=== PATIENT | male | born 1960 | race Caucasian/White ===

== ENCOUNTER 2016-06-14 12:12 | Inpatient (IN) | payer MEDICARE, MEDICAID ==
[~2016-06-14] VITALS: Ht 165.1 cm; Wt 65.3 kg
[~2016-06-14 12:12] MED LIST: ASPI-1035 PO; CINA30 PO; CLOP75TA2 PO
[2016-06-14 14:06] LABS: *AMPHETAMINES SCREEN URINE NEGATIVE (NEGATIVE); *BARBITURATES SCREEN URINE NEGATIVE (NEGATIVE); *BENZODIAZEPINES SCREEN URINE NEGATIVE (NEGATIVE); *COCAINE SCREEN URINE NEGATIVE (NEGATIVE); CANNABINOID URINE SCREEN NEGATIVE (NEGATIVE); ECSTASY MDMA SCREEN URINE NEGATIVE (NEGATIVE); METHADONE URINE SCREEN NEGATIVE (NEGATIVE); OPIATES URINE SCREEN NEGATIVE (NEGATIVE); PHENCYCLIDINE URINE SCREEN NEGATIVE (NEGATIVE)
[2016-06-14 14:26] LABS: INR 1.3; PROTHROMBIN TIME 13.4 sec
[2016-06-14 14:30] LABS: CALCIUM 7.9 mg/dL (8.5-10.1)
[2016-06-14 14:32] LABS: HEMATOCRIT. 32.6 % (42.0-52.0); HEMOGLOBIN. 10.8 g/dL (14.0-18.0); MEAN CORPUSCULAR HEMOGLOBIN 29.6 pg (28.0-32.0); MEAN CORPUSCULAR HGB CONC 33.2 g/dL (31.0-37.0); MEAN CORPUSCULAR VOLUME 89.2 fL (80.0-94.0); MEAN PLATELET VOLUME 8.5 fl (7.4-10.4); PLATELET 90 x1000/uL (130-400); RED BLOOD CELL COUNT 3.65 mill/uL (4.7-6.1); RED CELL DISTRIBUTION WIDTH 16.4 % (11.6-14.6)
[2016-06-14 14:37] LABS: TROPONIN I 0.76 ng/mL (0.00-0.04)
[2016-06-14 14:39] LABS: DIFFERENTIAL COMMENT 1
[2016-06-14] MEDS ORDERED: ASPIRIN 81MG TABLET PO ONE (15:00)
[2016-06-14] MEDS: NITROGLYCERIN 0.4MG TABLET SL SL PRN ×2 (15:10→15:19)
[2016-06-14] MEDS ORDERED: NITROGLYCERIN 0.4MG TABLET SL SL ONE (15:14)
[2016-06-14] MEDS ORDERED: ENOXAPARIN 40MG/0.4ML SYR SUBCUT SCH (15:45)
[2016-06-14] MEDS ORDERED: DOCUSATE SODIUM 100MG CAPSULE PO PRN (15:45)
[2016-06-14] MEDS ORDERED: ACETAMINOPHEN 325MG TABLET PO PRN (15:45)
[2016-06-14] MEDS ORDERED: ONDANSETRON HCL 4MG/2ML VIAL IV PRN (15:45)
[2016-06-14 16:26] LABS: CALCIUM 7.3 mg/dL (8.5-10.1)
[2016-06-14 16:34] LABS: ANISOCYTOSIS 1+; PLATELET ESTIMATE DECREASED
[2016-06-14 16:35] LABS: GIANT PLATELETS FEW
[2016-06-14 16:39] LABS: THYROID STIMULATING HORMONE 1.6 uIU/mL (0.36-3.74)
[2016-06-14] MEDS: CLONIDINE 0.1MG TABLET PO PRN (16:57)
[2016-06-14] MEDS: METOPROLOL TARTRATE 25MG TABLET PO SCH (17:00)
[2016-06-14] MEDS: LOSARTAN POTASSIUM 25 MG TABLET PO SCH (17:00)
[2016-06-14] MEDS ORDERED: CARV12.545 PO (19:54)
[2016-06-14 20:03] VITALS: BP 166/94
[2016-06-14] MEDS: ATORVASTATIN CALCIUM 20MG TABLET PO SCH (20:06)
[2016-06-14] MEDS: AMLODIPINE 5MG TABLET PO SCH (20:06)
[2016-06-14 20:49] VITALS: BP 166/94
[2016-06-15 00:11] VITALS: BP 190/92
[2016-06-15] MEDS: CLONIDINE 0.1MG TABLET PO PRN ×2 (01:21→11:50)
[2016-06-15] MEDS ORDERED: ZOLPIDEM TARTRATE 5MG TABLET PO PRN (03:15)
[2016-06-15] MEDS: GUAIFENESIN-DM 200MG-20MG/10ML UDC PO PRN (03:29)
[2016-06-15 04:00] VITALS: BP 159/84
[2016-06-15 06:54] LABS: HEMATOCRIT. 32.3 % (42.0-52.0); HEMOGLOBIN. 10.7 g/dL (14.0-18.0); MEAN CORPUSCULAR HEMOGLOBIN 29.5 pg (28.0-32.0); MEAN CORPUSCULAR HGB CONC 33.2 g/dL (31.0-37.0); MEAN PLATELET VOLUME 8.6 fl (7.4-10.4); PLATELET 88 x1000/uL (130-400); RED BLOOD CELL COUNT 3.63 mill/uL (4.7-6.1); RED CELL DISTRIBUTION WIDTH 16.6 % (11.6-14.6); WHITE BLOOD COUNT 9.4 x1000/uL (4.5-11.0)
[2016-06-15 07:09] LABS: DIFFERENTIAL COMMENT 1
[2016-06-15 07:27] LABS: CALCIUM 7.6 mg/dL (8.5-10.1)
[2016-06-15 08:00] VITALS: BP 166/91
[2016-06-15 08:13] LABS: TROPONIN I 0.46 ng/mL (0.00-0.04)
[2016-06-15] MEDS: CLOPIDOGREL 75MG TABLET PO SCH (09:00)
[2016-06-15] MEDS: ASPIRIN 81MG EC TABLET PO SCH (09:00)
[2016-06-15] MEDS: AMLODIPINE 5MG TABLET PO SCH (09:01)
[2016-06-15 12:00] VITALS: BP 181/106
[2016-06-15] MEDS: NIFEDIPINE XL 60MG TAB PO SCH ×2 (13:08→21:00)
[2016-06-15] MEDS: HYDRALAZINE HCL 50MG TABLET PO SCH ×2 (14:00→22:00)
[2016-06-15] MEDS ORDERED: NITROGLYCERIN 0.1MG/HR PATCH TOP NR (14:30)
[2016-06-15] MEDS: PREDNISONE 20MG TABLET PO SCH (14:40)
[2016-06-15] MEDS: LOSARTAN POTASSIUM 25 MG TABLET PO SCH ×2 (14:42→17:00)
[2016-06-15] MEDS: METOPROLOL TARTRATE 25MG TABLET PO SCH ×2 (14:43→17:00)
[2016-06-15 16:00] VITALS: BP 121/74
[2016-06-15 17:00] LABS: BG CARBOXYHEMOGLOBIN 0.8 % (0.5-1.5); BG DEOXYHEMOGLOBIN 23.1 % (0.0-5.0); BG FRACTION INSPIRED OXYGEN 21; BG METHEMOGLOBIN 0.2 % (0.0-1.5); BG OXYGEN SATURATION 76.7 % (92.0-98.5); BG OXYHEMOGLOBIN 75.9 % (94.0-97.0); BG PCO2 27.8 mmHg (35.0-45.0); BG SAMPLE SITE RIGHT BRACHIAL; BG TOTAL HEMOGLOBIN 11.7 g/dL (12.0-18.0); BG VENT MODE ROOM AIR
[2016-06-15 20:00] VITALS: BP 108/63
[2016-06-15] MEDS: ATORVASTATIN CALCIUM 20MG TABLET PO SCH (21:20)
[2016-06-16] VITALS (7 sets, daily range): BP systolic 55–117; BP diastolic 58–77
[2016-06-16] MEDS: HYDRALAZINE HCL 50MG TABLET PO SCH (06:00)
[2016-06-16] MEDS: LOSARTAN POTASSIUM 25 MG TABLET PO SCH ×2 (08:39→21:02)
[2016-06-16] MEDS: PREDNISONE 20MG TABLET PO SCH (08:39)
[2016-06-16] MEDS: METOPROLOL TARTRATE 25MG TABLET PO SCH ×2 (08:41→17:00)
[2016-06-16] MEDS: NIFEDIPINE XL 60MG TAB PO SCH (08:45)
[2016-06-16] MEDS: ASPIRIN 81MG EC TABLET PO SCH (08:47)
[2016-06-16] MEDS: CLOPIDOGREL 75MG TABLET PO SCH (08:47)
[2016-06-16] MEDS: GUAIFENESIN-DM 200MG-20MG/10ML UDC PO PRN (11:30)
[2016-06-16 12:24] LABS: HEMATOCRIT. 34.8 % (42.0-52.0); HEMOGLOBIN. 11.6 g/dL (14.0-18.0); MEAN CORPUSCULAR HEMOGLOBIN 29.4 pg (28.0-32.0); MEAN CORPUSCULAR HGB CONC 33.4 g/dL (31.0-37.0); MEAN PLATELET VOLUME 8.7 fl (7.4-10.4); PLATELET 123 x1000/uL (130-400); RED BLOOD CELL COUNT 3.96 mill/uL (4.7-6.1); RED CELL DISTRIBUTION WIDTH 15.7 % (11.6-14.6); WHITE BLOOD COUNT 7.4 x1000/uL (4.5-11.0)
[2016-06-16 12:27] LABS: DIFFERENTIAL COMMENT 1
[2016-06-16 12:34] LABS: CALCIUM 7.1 mg/dL (8.5-10.1)
[2016-06-16] MEDS ORDERED: SODIUM CHLORIDE 0.9% 200 ML IV ONE (13:15)
[2016-06-16 13:28] LABS: PLATELET ESTIMATE DECREASED
[2016-06-16 14:25] LABS: PLATELET ESTIMATE SLIGHTLY DECREASED
[2016-06-16 16:08] LABS: BG BASE EXCESS -4.9 mmol/L (-2.0-2.0); BG CARBOXYHEMOGLOBIN 0.4 % (0.5-1.5); BG DEOXYHEMOGLOBIN 4.6 % (0.0-5.0); BG FRACTION INSPIRED OXYGEN 21; BG HCO3 ACT 18.8 mmol/L (22.0-26.0); BG METHEMOGLOBIN 0.6 % (0.0-1.5); BG OXYGEN SATURATION 95.4 % (92.0-98.5); BG OXYHEMOGLOBIN 94.4 % (94.0-97.0); BG PCO2 32.5 mmHg (35.0-45.0); BG PH 7.381 (7.350-7.450); BG PO2 87.3 mmHg (75.0-100.0); BG SAMPLE SITE RIGHT RADIAL; BG TOTAL HEMOGLOBIN 18.6 g/dL (12.0-18.0); BG VENT MODE ROOM AIR
[2016-06-16] MEDS ORDERED: DEXTROSE 50% WATER 50ML SYRINGE IV PRN (16:30)
[2016-06-16] MEDS: BLOOD SUGAR DIAGNOSTIC STRIP TEST SCH ×2 (17:24→21:02)
[2016-06-16] MEDS: INSULIN LISPRO 100 UNITS/ML SUBCUT SCH ×2 (18:23→21:03)
[2016-06-16] MEDS: NIFEDIPINE XL 30MG TAB PO SCH (21:00)
[2016-06-16] MEDS: ATORVASTATIN CALCIUM 20MG TABLET PO SCH (21:02)
[2016-06-17 00:09] VITALS: BP 98/55
[2016-06-17] MEDS: IPRATROPIUM/ALBUTEROL 0.5-3(2.5)MG/3ML NEB INH SCH ×4 (00:19→19:50)
[2016-06-17] MEDS: BUDESONIDE 0.5MG/2ML NEB HHN SCH ×3 (00:20→19:50)
[2016-06-17 04:30] VITALS: BP 128/71
[2016-06-17] MEDS: GUAIFENESIN-DM 200MG-20MG/10ML UDC PO PRN ×2 (05:35→21:04)
[2016-06-17 07:00] LABS: HEMATOCRIT. 36.2 % (42.0-52.0); HEMOGLOBIN. 11.8 g/dL (14.0-18.0); MEAN CORPUSCULAR HEMOGLOBIN 28.7 pg (28.0-32.0); MEAN CORPUSCULAR HGB CONC 32.7 g/dL (31.0-37.0); MEAN CORPUSCULAR VOLUME 87.7 fL (80.0-94.0); MEAN PLATELET VOLUME 8.8 fl (7.4-10.4); PLATELET 144 x1000/uL (130-400); RED BLOOD CELL COUNT 4.12 mill/uL (4.7-6.1); RED CELL DISTRIBUTION WIDTH 15.9 % (11.6-14.6); WHITE BLOOD COUNT 12.6 x1000/uL (4.5-11.0)
[2016-06-17 07:33] LABS: CALCIUM 6.9 mg/dL (8.5-10.1)
[2016-06-17 08:00] VITALS: BP 125/71
[2016-06-17] MEDS: BLOOD SUGAR DIAGNOSTIC STRIP TEST SCH ×4 (08:11→21:05)
[2016-06-17 08:23] LABS: DIFFERENTIAL COMMENT 1
[2016-06-17] MEDS: ASPIRIN 81MG EC TABLET PO SCH (08:42)
[2016-06-17] MEDS: PREDNISONE 20MG TABLET PO SCH (08:42)
[2016-06-17] MEDS: INSULIN LISPRO 100 UNITS/ML SUBCUT SCH ×4 (08:42→21:18)
[2016-06-17] MEDS: METOPROLOL TARTRATE 25MG TABLET PO SCH ×2 (09:00→17:00)
[2016-06-17] MEDS: LOSARTAN POTASSIUM 25 MG TABLET PO SCH ×2 (09:00→21:00)
[2016-06-17] MEDS: NIFEDIPINE XL 30MG TAB PO SCH ×2 (09:00→21:00)
[2016-06-17] MEDS ORDERED: ASPIRIN 81MG EC TABLET PO SCH (09:00)
[2016-06-17] MEDS: CLOPIDOGREL 75MG TABLET PO SCH (09:55)
[2016-06-17 12:00] VITALS: BP 115/64
[2016-06-17 14:02] LABS: ANISOCYTOSIS 1+; PLATELET ESTIMATE NORMAL
[2016-06-17 16:00] VITALS: BP 126/71
[2016-06-17] MEDS ORDERED: INSULIN LISPRO 100 UNITS/ML SUBCUT ONE (18:30)
[2016-06-17 20:00] VITALS: BP 150/86
[2016-06-17] MEDS: LORAZEPAM 2MG/ML CPJ IV PRN (21:04)
[2016-06-17] MEDS: ATORVASTATIN CALCIUM 20MG TABLET PO SCH (21:04)
[2016-06-17] MEDS ORDERED: INSULIN DETEMIR UD 100 UNITS/ML SYR SUBCUT SCH (22:00)
[2016-06-18 00:24] VITALS: BP 132/80
[2016-06-18] MEDS ORDERED: DILTIAZEM HCL 5MG/ML 5ML VIAL IV NR (02:30)
[2016-06-18] MEDS: LORAZEPAM 2MG/ML CPJ IV PRN (02:52)
[2016-06-18] MEDS: GUAIFENESIN-DM 200MG-20MG/10ML UDC PO PRN (02:52)
[2016-06-18] MEDS: NIFEDIPINE XL 30MG TAB PO SCH (03:02)
[2016-06-18] MEDS: LOSARTAN POTASSIUM 25 MG TABLET PO SCH (03:03)
[2016-06-18 04:10] VITALS: BP 150/80
[2016-06-18] MEDS ORDERED: DILTIAZEM HCL 125 MG in DEXT 5% WATER 100 ML IV PRN (04:45)
[2016-06-18 07:00] VITALS: BP 115/70
[2016-06-18 07:15] VITALS: BP 116/67
[2016-06-18] MEDS: BLOOD SUGAR DIAGNOSTIC STRIP TEST SCH (07:20)
[2016-06-18 07:30] VITALS: BP 116/67
== END 2016-06-18 07:50 | disposition left against medical advice (07) | DRG 280 ==
LOC: ER 14:39 → 7WST 19:11 → CVICU 06-18 05:32
PROVIDERS: ADMIT Internal Medicine Nephrology; ATTEND Internal Medicine Nephrology
PROC: 5A1D60Z (ICD-10-PCS; principal; 2016-06-16)
DX: I48.0 Paroxysmal atrial fibrillation (principal); I21.4 Non-ST elevation (NSTEMI) myocardial infarction; N18.6 End stage renal disease; J96.01 Acute respiratory failure with hypoxia; I12.0 Hypertensive chronic kidney disease with stage 5 chronic kidney disease or end stage renal disease; I48.92 Unspecified atrial flutter; D63.1 Anemia in chronic kidney disease; E11.22 Type 2 diabetes mellitus with diabetic chronic kidney disease; E87.70 Fluid overload, unspecified; I25.10 Atherosclerotic heart disease of native coronary artery without angina pectoris; R50.9 Fever, unspecified; Z53.21 Procedure and treatment not carried out due to patient leaving prior to being seen by health care provider; Z99.2 Dependence on renal dialysis; Z82.49 Family history of ischemic heart disease and other diseases of the circulatory system; Z83.3 Family history of diabetes mellitus; Z90.49 Acquired absence of other specified parts of digestive tract; Z88.8 Allergy status to other drugs, medicaments and biological substances; Z79.899 Other long term (current) drug therapy; Z79.82 Long term (current) use of aspirin; M94.0 Chondrocostal junction syndrome [Tietze]
CPT/HCPCS: 36415; 36600; 71010; 71275; 74176; 80048; 80061; 80305; 82375; 82805; 82962; 83036; 83735; 83880; 84443; 84484; 85025; 85610; 87040; 93005; 93306; 93970; 94640; 94664; 97116; 97162; 97166; 99291; J1815; J2060; J3490; J7040; J7050; J7512; J7620; J7626; A4315

== ENCOUNTER 2021-11-04 14:58 | Emergency (ER) | payer MEDICARE, MEDICAID ==
[~2021-11-04] VITALS: Ht 157.5 cm; Wt 68.0 kg
[~2021-11-04 14:58] MED LIST changes: -ASPI-1035 PO; +ASPI-1497 PO; +CARV12.545 PO; +CARV3.1242 MT; -CINA30 PO; +CLOP-31 PO; -CLOP75TA2 PO; +GABA-529 MT; +LOSA50TA41 MT
[2021-11-04 16:24] LABS: HEMATOCRIT. 30.5 % (42.0-52.0); HEMOGLOBIN. 10.2 g/dL (14.0-18.0); MEAN CORPUSCULAR HEMOGLOBIN 31.4 pg (28.0-32.0); MEAN CORPUSCULAR VOLUME 93.3 fL (80.0-94.0); MEAN PLATELET VOLUME 7.5 fl (7.4-10.4); PLATELET 108 x1000/uL (130-400); RED BLOOD CELL COUNT 3.27 mill/uL (4.7-6.1); RED CELL DISTRIBUTION WIDTH 15.2 % (11.6-14.6)
[2021-11-04 16:45] VITALS: BP 119/57
[2021-11-04 18:19] LABS: PLATELET ESTIMATE DECREASED
== END 2021-11-04 16:55 | disposition home or self-care (01) ==
LOC: ER 14:58
DX: T82.838A Hemorrhage due to vascular prosthetic devices, implants and grafts, initial encounter (principal); I12.0 Hypertensive chronic kidney disease with stage 5 chronic kidney disease or end stage renal disease; E11.22 Type 2 diabetes mellitus with diabetic chronic kidney disease; N18.6 End stage renal disease; Z99.2 Dependence on renal dialysis; Y84.1 Kidney dialysis as the cause of abnormal reaction of the patient, or of later complication, without mention of misadventure at the time of the procedure; Y92.9 Unspecified place or not applicable; Z88.6 Allergy status to analgesic agent; Z79.82 Long term (current) use of aspirin
CPT/HCPCS: 36415; 85025; 99283

== ENCOUNTER 2021-12-16 16:13 | Emergency (ER) | payer MEDICARE, MEDICAID ==
[~2021-12-16] VITALS: Ht 160 cm; Wt 73.0 kg
[2021-12-16 17:18] LABS: HEMATOCRIT. 31.8 % (42.0-52.0); HEMOGLOBIN. 10.7 g/dL (14.0-18.0); MEAN CORPUSCULAR HEMOGLOBIN 31.6 pg (28.0-32.0); MEAN CORPUSCULAR VOLUME 94.3 fL (80.0-94.0); MEAN PLATELET VOLUME 7.9 fl (7.4-10.4); PLATELET 106 x1000/uL (130-400); RED BLOOD CELL COUNT 3.37 mill/uL (4.7-6.1); RED CELL DISTRIBUTION WIDTH 15.3 % (11.6-14.6)
[2021-12-16 17:27] LABS: INR 1.2; PROTHROMBIN TIME 12.3 sec (9.6-11.0)
[2021-12-16 17:38] LABS: CHLORIDE 93 mEq/L (98-107)
[2021-12-16 17:54] LABS: PLATELET ESTIMATE DECREASED
[2021-12-16 19:43] VITALS: BP 128/70
== END 2021-12-16 21:52 | disposition home or self-care (01) ==
LOC: ER 16:13
DX: T82.41XA Breakdown (mechanical) of vascular dialysis catheter, initial encounter (principal); Y84.1 Kidney dialysis as the cause of abnormal reaction of the patient, or of later complication, without mention of misadventure at the time of the procedure; Y92.9 Unspecified place or not applicable; I12.0 Hypertensive chronic kidney disease with stage 5 chronic kidney disease or end stage renal disease; E11.22 Type 2 diabetes mellitus with diabetic chronic kidney disease; N18.6 End stage renal disease; Z88.6 Allergy status to analgesic agent; Z99.2 Dependence on renal dialysis; Z79.82 Long term (current) use of aspirin
CPT/HCPCS: 36415; 80053; 85025; 86850; 86900; 99283

== ENCOUNTER 2022-02-26 10:43 | Inpatient (IN) | payer MEDICARE, MEDICAID ==
[2022-02-26] VITALS (7 sets, daily range): BP systolic 86–119; BP diastolic 46–94
[~2022-02-26] VITALS: Ht 165.1 cm; Wt 79.8 kg
[2022-02-26 12:05] LABS: BASOPHILS % 0.8 % (0.0-2.0); EOSINOPHILS % 5.7 % (0.0-5.0); HEMATOCRIT. 34.9 % (42.0-52.0); HEMOGLOBIN. 11.6 g/dL (14.0-18.0); LYMPHOCYTES % 10.2 % (20.0-50.0); MEAN CORPUSCULAR HEMOGLOBIN 31.3 pg (28.0-32.0); MEAN CORPUSCULAR VOLUME 94.3 fL (80.0-94.0); MEAN PLATELET VOLUME 9.5 fl (7.4-10.4); MONOCYTES % 13.2 % (2.0-8.0); NEUTROPHILS % 70.1 % (40.0-76.0); PLATELET 88 x1000/uL (130-400); RED CELL DISTRIBUTION WIDTH 16.7 % (11.6-14.6)
[2022-02-26 12:42] LABS: CHLORIDE 97 mEq/L (98-107)
[2022-02-26] MEDS ORDERED: INSULIN REGULAR (HUMULIN R) 300UNITS/3ML VIAL IV NR (13:15)
[2022-02-26] MEDS ORDERED: DEXTROSE 50% WATER 50ML SYRINGE IV NR (13:15)
[2022-02-26] MEDS ORDERED: SODIUM BICARBONATE 8.4% 1 MEQ/ML 50ML SYR IV NR (13:15)
[2022-02-26] MEDS ORDERED: FUROSEMIDE 100MG/10ML VIAL IV NR (13:15)
[2022-02-26] MEDS ORDERED: ALBUTEROL (0.083%) 2.5MG/3ML NEB HHN NR (13:15)
[2022-02-26] MEDS ORDERED: SODIUM POLYSTYRENE SULFONATE 15 G/60 ML BOT PO NR (13:45)
[2022-02-26] MEDS ORDERED: CALCIUM GLUCONATE 100MG/ML 10ML VIAL IV ONE (14:00)
[2022-02-26] MEDS ORDERED: ONDANSETRON HCL 4MG/2ML INJ IV PRN (15:00)
[2022-02-26] MEDS ORDERED: DIPHENHYDRAMINE 50MG/ML VIAL IV PRN (15:00)
[2022-02-26] MEDS ORDERED: IPRATROPIUM/ALBUTEROL 0.5-3(2.5)MG/3ML NEB HHN PRN (15:00)
[2022-02-26] MEDS ORDERED: ACETAMINOPHEN 325MG TABLET PO PRN (15:00)
[2022-02-26] MEDS: CALCIUM ACETATE 667MG CAPSULE PO SCH (17:22)
[2022-02-26] MEDS: MIDODRINE HCL 5MG TABLET PO SCH (17:23)
[2022-02-26] MEDS ORDERED: DEXTROSE 50% WATER 50ML SYRINGE IV PRN (18:15)
[2022-02-26] MEDS: INSULIN LISPRO 100 UNITS/ML SUBCUT SCH (21:00)
[2022-02-26] MEDS: ATORVASTATIN CALCIUM 40MG TABLET PO SCH (21:41)
[2022-02-26] MEDS: PREGABALIN 25MG CAPSULE PO SCH (21:41)
[2022-02-26] MEDS: BLOOD SUGAR DIAGNOSTIC STRIP TEST SCH (21:41)
[2022-02-27] VITALS: BP 84/40
[2022-02-27] MEDS ORDERED: ALBUTEROL (0.083%) 2.5MG/3ML NEB HHN PRN (00:15)
[2022-02-27] MEDS ORDERED: IPRATROPIUM BROMIDE (0.02%) 0.5MG/2.5ML NEB HHN PRN (00:15)
[2022-02-27 04:00] VITALS: BP 106/56
[2022-02-27] MEDS: BLOOD SUGAR DIAGNOSTIC STRIP TEST SCH ×2 (06:18→12:47)
[2022-02-27] MEDS: INSULIN LISPRO 100 UNITS/ML SUBCUT SCH ×2 (06:18→12:40)
[2022-02-27 07:21] LABS: PHOSPHORUS 7.9 mg/dL (2.5-4.9)
[2022-02-27 07:22] LABS: HEMATOCRIT. 34.8 % (42.0-52.0); HEMOGLOBIN. 11.6 g/dL (14.0-18.0); MEAN CORPUSCULAR HEMOGLOBIN 31.5 pg (28.0-32.0); MEAN CORPUSCULAR VOLUME 94.4 fL (80.0-94.0); MEAN PLATELET VOLUME 9.2 fl (7.4-10.4); PLATELET 95 x1000/uL (130-400); RED BLOOD CELL COUNT 3.68 mill/uL (4.7-6.1); RED CELL DISTRIBUTION WIDTH 16.7 % (11.6-14.6)
[2022-02-27 08:00] VITALS: BP 135/51
[2022-02-27] MEDS: MIDODRINE HCL 5MG TABLET PO SCH ×3 (09:00→16:01)
[2022-02-27] MEDS ORDERED: ASPIRIN 81MG EC TABLET PO SCH (09:00)
[2022-02-27] MEDS: FOLIC ACID/VITAMIN B COMP W-C TABLET PO SCH (09:03)
[2022-02-27] MEDS: CALCIUM ACETATE 667MG CAPSULE PO SCH ×3 (09:03→17:47)
[2022-02-27 12:00] VITALS: BP 98/62
[2022-02-27 16:00] VITALS: BP 95/63
[2022-02-27 20:00] VITALS: BP 96/64
[2022-02-27] MEDS: ATORVASTATIN CALCIUM 40MG TABLET PO SCH (21:06)
[2022-02-27] MEDS: PREGABALIN 25MG CAPSULE PO SCH (21:06)
[2022-02-28] VITALS (7 sets, daily range): BP systolic 93–112; BP diastolic 44–58
[2022-02-28 06:21] LABS: HEMATOCRIT. 34.5 % (42.0-52.0); HEMOGLOBIN. 11.7 g/dL (14.0-18.0); MEAN CORPUSCULAR HEMOGLOBIN 31.9 pg (28.0-32.0); MEAN CORPUSCULAR VOLUME 93.9 fL (80.0-94.0); MEAN PLATELET VOLUME 9.4 fl (7.4-10.4); PLATELET 99 x1000/uL (130-400); RED BLOOD CELL COUNT 3.67 mill/uL (4.7-6.1); RED CELL DISTRIBUTION WIDTH 16.9 % (11.6-14.6)
[2022-02-28] MEDS: FOLIC ACID/VITAMIN B COMP W-C TABLET PO SCH (09:00)
[2022-02-28] MEDS: MIDODRINE HCL 5MG TABLET PO SCH ×3 (09:01→17:31)
[2022-02-28] MEDS: CALCIUM ACETATE 667MG CAPSULE PO SCH ×3 (09:01→17:31)
[2022-02-28] MEDS ORDERED: LYR25 PO (12:57)
[2022-02-28] MEDS ORDERED: MIDO5TAB4 PO (12:57)
[2022-02-28] MEDS ORDERED: AMIO100T4 PO ×2 (12:57→14:24)
[2022-02-28] MEDS ORDERED: NEPVIT PO (12:57)
[2022-02-28] MEDS ORDERED: CALC667T2 MT (12:57)
[2022-02-28] MEDS ORDERED: LIP40 PO (12:57)
[2022-02-28 14:13] LABS: PLATELET ESTIMATE DECREASED
[2022-02-28 15:03] LABS: PLATELET ESTIMATE DECREASED
== END 2022-02-28 21:25 | disposition home health service (06) | DRG 640 ==
LOC: ER 10:43 → EDBEDREQ 11:19 → 8WST 13:31 → EDBEDREQ 13:37 → EDBEDREQTM 13:37 → 8WST 02-27 08:23
PROVIDERS: ADMIT Internal Medicine; ATTEND Internal Medicine
PROC: 5A1D70Z Performance of Urinary Filtration, Intermittent, Less than 6 Hours Per Day (ICD-10-PCS; principal; 2022-02-26)
DX: E87.5 Hyperkalemia (principal); N18.6 End stage renal disease; I13.2 Hypertensive heart and chronic kidney disease with heart failure and with stage 5 chronic kidney disease, or end stage renal disease; N25.81 Secondary hyperparathyroidism of renal origin; I48.92 Unspecified atrial flutter; I42.9 Cardiomyopathy, unspecified; I44.0 Atrioventricular block, first degree; I48.0 Paroxysmal atrial fibrillation; D69.6 Thrombocytopenia, unspecified; E11.22 Type 2 diabetes mellitus with diabetic chronic kidney disease; E11.42 Type 2 diabetes mellitus with diabetic polyneuropathy; I50.9 Heart failure, unspecified; I25.10 Atherosclerotic heart disease of native coronary artery without angina pectoris; E83.39 Other disorders of phosphorus metabolism; R06.89 Other abnormalities of breathing; E78.5 Hyperlipidemia, unspecified; D63.1 Anemia in chronic kidney disease; I25.2 Old myocardial infarction; Z88.8 Allergy status to other drugs, medicaments and biological substances; Z86.16 Personal history of COVID-19; Z91.15 Patient's noncompliance with renal dialysis; Z99.2 Dependence on renal dialysis; Z79.899 Other long term (current) drug therapy; Z79.4 Long term (current) use of insulin; Z82.49 Family history of ischemic heart disease and other diseases of the circulatory system
CPT/HCPCS: 36415; 71045; 80048; 80053; 82962; 83036; 83735; 83880; 84100; 84132; 84443; 84484; 85025; 87426; 93005; 93306; 93970; 99291; J0610; J1815; J1940; J3490

== ENCOUNTER 2022-03-05 12:12 | Inpatient (IN) | payer MEDICARE, MEDICAID ==
[~2022-03-05] VITALS: Ht 165.1 cm; Wt 70.3 kg
[~2022-03-05 12:12] MED LIST changes: +AMIO100T4 PO; -ASPI-1497 PO; +CALC667T2 MT; -CARV12.545 PO; -CARV3.1242 MT; -CLOP-31 PO; +LIP40 PO; -LOSA50TA41 MT; +LYR25 PO; +MIDO5TAB4 PO; +NEPVIT PO
[2022-03-05] MEDS ORDERED: CALCIUM GLUCONATE 1,000 MG in DEXT 5% WATER 100 ML IV ONE (12:30)
[2022-03-05 13:15] LABS: BASOPHILS % 0.6 % (0.0-2.0); EOSINOPHILS % 4.9 % (0.0-5.0); HEMATOCRIT. 35.2 % (42.0-52.0); HEMOGLOBIN. 11.5 g/dL (14.0-18.0); LYMPHOCYTES % 12.5 % (20.0-50.0); MEAN CORPUSCULAR HEMOGLOBIN 30.9 pg (28.0-32.0); MEAN CORPUSCULAR VOLUME 94.7 fL (80.0-94.0); MONOCYTES % 13.3 % (2.0-8.0); NEUTROPHILS % 68.7 % (40.0-76.0); PLATELET 80 x1000/uL (130-400); RED BLOOD CELL COUNT 3.72 mill/uL (4.7-6.1); RED CELL DISTRIBUTION WIDTH 16.6 % (11.6-14.6)
[2022-03-05 13:18] LABS: CHLORIDE 97 mEq/L (98-107)
[2022-03-05] MEDS ORDERED: DEXTROSE 50% WATER 50ML SYRINGE IV ONE (13:30)
[2022-03-05] MEDS ORDERED: SODIUM BICARBONATE 8.4% 1 MEQ/ML 50ML SYR IV ONE (13:30)
[2022-03-05] MEDS ORDERED: INSULIN REGULAR (HUMULIN R) 300UNITS/3ML VIAL IV ONE (13:30)
[2022-03-05] MEDS ORDERED: DEXTROSE 50% WATER 50ML SYRINGE IV NR (16:45)
[2022-03-05] MEDS ORDERED: SODIUM BICARBONATE 8.4% 1 MEQ/ML 50ML SYR IV NR (16:45)
[2022-03-05] MEDS ORDERED: INSULIN REGULAR (HUMULIN R) 300UNITS/3ML VIAL IV NR (16:45)
[2022-03-05 23:01] LABS: CHLORIDE 98 mEq/L (98-107)
[2022-03-05] MEDS: DOPAMINE 400MG/250ML PREMIX 250 ML IV PRN (23:01)
[2022-03-05] MEDS ORDERED: ACETAMINOPHEN 325MG TABLET PO PRN (23:15)
[2022-03-05] MEDS ORDERED: ONDANSETRON HCL 4MG/2ML INJ IV PRN (23:15)
[2022-03-06 04:54] LABS: HEPATITIS B SURFACE ANTIGEN NEGATIVE
[2022-03-06 06:01] LABS: HEMATOCRIT. 37.5 % (42.0-52.0); HEMOGLOBIN. 12.3 g/dL (14.0-18.0); MEAN CORPUSCULAR HEMOGLOBIN 31.1 pg (28.0-32.0); MEAN CORPUSCULAR VOLUME 94.6 fL (80.0-94.0); MEAN PLATELET VOLUME 9.3 fl (7.4-10.4); PLATELET 83 x1000/uL (130-400); RED BLOOD CELL COUNT 3.96 mill/uL (4.7-6.1); RED CELL DISTRIBUTION WIDTH 16.5 % (11.6-14.6)
[2022-03-06 06:29] LABS: CREATINE KINASE MB FRACTION 26.7 ng/mL (0.5-3.6)
[2022-03-06 08:59] LABS: PLATELET ESTIMATE DECREASED
[2022-03-06] MEDS ORDERED: ENOXAPARIN 30MG/0.3ML SYR SUBCUT SCH (09:00)
[2022-03-06 10:00] VITALS: BP 84/42
[2022-03-06 10:10] VITALS: BP 102/54
[2022-03-06] MEDS ORDERED: NOREPINEPHRINE 8 MG in DEXTROSE 5% WATER 250 ML IV PRN (10:30)
[2022-03-06] MEDS ORDERED: ALBUMIN HUMAN 12.5GM/50ML (25%) IV NR (10:30)
[2022-03-06] MEDS ORDERED: NOREPINEPHRINE 8MG/250ML PMX 250 ML IV PRN (10:30)
[2022-03-06 10:45] VITALS: BP 108/69
[2022-03-06 11:15] VITALS: BP 112/52
[2022-03-06 12:15] VITALS: BP 124/64
[2022-03-06 13:10] VITALS: BP_SYST 109; BP_DIAS 84; BP_DIAS 86
[2022-03-06 21:17] LABS: CREATINE KINASE MB FRACTION 25.8 ng/mL (0.5-3.6)
[2022-03-06] MEDS: ATORVASTATIN CALCIUM 20MG TABLET PO SCH (21:27)
[2022-03-07] VITALS (12 sets, daily range): BP systolic 81–126; BP diastolic 45–87
[2022-03-07 04:11] LABS: HEMATOCRIT. 37.3 % (42.0-52.0); HEMOGLOBIN. 12.1 g/dL (14.0-18.0); MEAN CORPUSCULAR HEMOGLOBIN 31.2 pg (28.0-32.0); MEAN CORPUSCULAR VOLUME 95.8 fL (80.0-94.0); MEAN PLATELET VOLUME 9.5 fl (7.4-10.4); PLATELET 90 x1000/uL (130-400); RED BLOOD CELL COUNT 3.89 mill/uL (4.7-6.1); RED CELL DISTRIBUTION WIDTH 17.3 % (11.6-14.6)
[2022-03-07 04:33] LABS: PHOSPHORUS 7.4 mg/dL (2.5-4.9)
[2022-03-07 07:28] LABS: NUCLEATED RED BLOOD CELLS 1 /100 WBC; PLATELET ESTIMATE DECREASED
[2022-03-07] MEDS: MIDODRINE HCL 5MG TABLET PO SCH ×4 (09:00→19:00)
[2022-03-07] MEDS ORDERED: ENOXAPARIN 30MG/0.3ML SYR SUBCUT SCH (11:00)
[2022-03-07] MEDS: ASPIRIN 81MG TABLET PO SCH (11:40)
[2022-03-07] MEDS: CEFEPIME 500 MG in DEXTROSE 5% WATER 50 ML IV SCH (14:00)
[2022-03-07 14:07] LABS: INR 1.3; PARTIAL THROMBOPLASTIN TIME 31.3 sec (23.4-31.0); PROTHROMBIN TIME 13.6 sec (9.6-11.0)
[2022-03-07 14:16] LABS: T4 FREE 1.07 ng/dL (0.76-1.46)
[2022-03-07] MEDS ORDERED: AMIKACIN 500MG in SODIUM CHLORIDE 0.9% 100ML IV NR (18:00)
[2022-03-07] MEDS ORDERED: TRAMADOL HCL/ACETAMINOPHEN 37.5/325MG TABLET PO PRN (19:00)
[2022-03-07] MEDS ORDERED: NALOXONE HCL 0.4MG/ML VIAL IV PRN (19:15)
[2022-03-07] MEDS: ATORVASTATIN CALCIUM 20MG TABLET PO SCH (21:31)
[2022-03-08] VITALS (83 sets, daily range): BP systolic 55–149; BP diastolic 24–90
[2022-03-08 05:19] LABS: HEMATOCRIT. 32.8 % (42.0-52.0); HEMOGLOBIN. 10.9 g/dL (14.0-18.0); MEAN CORPUSCULAR HEMOGLOBIN 31.4 pg (28.0-32.0); MEAN CORPUSCULAR VOLUME 94.8 fL (80.0-94.0); MEAN PLATELET VOLUME 9.5 fl (7.4-10.4); PLATELET 70 x1000/uL (130-400); RED BLOOD CELL COUNT 3.47 mill/uL (4.7-6.1)
[2022-03-08 06:12] LABS: PHOSPHORUS 7.9 mg/dL (2.5-4.9)
[2022-03-08] MEDS: DOPAMINE 400MG/250ML PREMIX 250 ML IV PRN (07:24)
[2022-03-08] MEDS: ASPIRIN 81MG TABLET PO SCH (08:25)
[2022-03-08] MEDS: MIDODRINE HCL 5MG TABLET PO SCH ×3 (08:27→16:29)
[2022-03-08] MEDS: LEVOTHYROXINE SODIUM 25MCG TABLET PO SCH (09:39)
[2022-03-08] MEDS ORDERED: NOREPINEPHRINE 32 MG in DEXT 5% WATER 218 ML IV PRN (10:00)
[2022-03-08 12:05] LABS: PLATELET ESTIMATE DECREASED
[2022-03-08] MEDS: CEFEPIME 500 MG in DEXTROSE 5% WATER 50 ML IV SCH (13:54)
[2022-03-08] MEDS: DEXT 5%/0.9% NACL 1,000 ML IV SCH (16:29)
[2022-03-08 20:11] LABS: BG BASE EXCESS 0.7 mmol/L (-2.0-2.0); BG DEOXYHEMOGLOBIN 6.7 % (0.0-5.0); BG FRACTION INSPIRED OXYGEN 28; BG HCO3 ACT 24.2 mmol/L (22.0-26.0); BG METHEMOGLOBIN 0.3 % (0.0-1.5); BG OXYGEN SATURATION 93.2 % (92.0-98.5); BG PCO2 34.7 mmHg (35.0-45.0); BG PH 7.461 (7.350-7.450); BG PO2 74.8 mmHg (75.0-100.0); BG SAMPLE SITE RIGHT RADIAL; BG TOTAL HEMOGLOBIN 11.4 g/dL (12.0-18.0); BG VENT MODE NASAL CANNULA
[2022-03-08] MEDS: ATORVASTATIN CALCIUM 20MG TABLET PO SCH (20:31)
[2022-03-08] MEDS: LACTULOSE 20G/30ML UDC PO SCH (21:54)
[2022-03-09] VITALS (24 sets, daily range): BP systolic 83–147; BP diastolic 27–69
[2022-03-09 04:52] LABS: HEMATOCRIT. 33.1 % (42.0-52.0); MEAN CORPUSCULAR HEMOGLOBIN 31.2 pg (28.0-32.0); PLATELET 70 x1000/uL (130-400); RED BLOOD CELL COUNT 3.52 mill/uL (4.7-6.1); RED CELL DISTRIBUTION WIDTH 17.6 % (11.6-14.6)
[2022-03-09 05:11] LABS: PHOSPHORUS 7.4 mg/dL (2.5-4.9)
[2022-03-09] MEDS: LEVOTHYROXINE SODIUM 25MCG TABLET PO SCH (05:20)
[2022-03-09] MEDS: LACTULOSE 20G/30ML UDC PO SCH ×3 (05:20→21:35)
[2022-03-09] MEDS: CEFTRIAXONE 1,000 MG in DEXTROSE 5% WATER 50 ML IV SCH (09:07)
[2022-03-09] MEDS: MIDODRINE HCL 5MG TABLET PO SCH ×3 (09:07→17:00)
[2022-03-09] MEDS: ASPIRIN 81MG TABLET PO SCH (09:07)
[2022-03-09] MEDS ORDERED: SODIUM CHLORIDE 0.9% 250 ML IV ONE (14:30)
[2022-03-09] MEDS: DEXT 5%/0.9% NACL 1,000 ML IV SCH (14:35)
[2022-03-09 16:38] LABS: PLATELET ESTIMATE DECREASED
[2022-03-09] MEDS: ATORVASTATIN CALCIUM 20MG TABLET PO SCH (21:35)
[2022-03-10] VITALS (11 sets, daily range): BP systolic 97–122; BP diastolic 43–77
[2022-03-10] MEDS: LACTULOSE 20G/30ML UDC PO SCH ×3 (05:26→21:10)
[2022-03-10] MEDS: LEVOTHYROXINE SODIUM 25MCG TABLET PO SCH (05:27)
[2022-03-10 07:05] LABS: HEMATOCRIT. 34.3 % (42.0-52.0); HEMOGLOBIN. 11.3 g/dL (14.0-18.0); MEAN CORPUSCULAR HEMOGLOBIN 31.4 pg (28.0-32.0); MEAN CORPUSCULAR VOLUME 95.2 fL (80.0-94.0); MEAN PLATELET VOLUME 9.1 fl (7.4-10.4); PLATELET 80 x1000/uL (130-400); RED CELL DISTRIBUTION WIDTH 17.1 % (11.6-14.6)
[2022-03-10 07:48] LABS: PHOSPHORUS 8.5 mg/dL (2.5-4.9)
[2022-03-10] MEDS: CEFTRIAXONE 1,000 MG in DEXTROSE 5% WATER 50 ML IV SCH (08:26)
[2022-03-10] MEDS: MIDODRINE HCL 5MG TABLET PO SCH ×5 (08:27→17:58)
[2022-03-10] MEDS ORDERED: MENTHOL/LANOLIN/CALAMINE/ZN OX OINT 71GM TOP PRN (13:15)
[2022-03-10 13:22] LABS: PLATELET ESTIMATE DECREASED
[2022-03-10] MEDS: DEXT 5%/0.9% NACL 1,000 ML IV SCH (16:15)
[2022-03-10] MEDS: ATORVASTATIN CALCIUM 20MG TABLET PO SCH (20:54)
[2022-03-11] VITALS: BP 108/53
[2022-03-11] MEDS: THIAMINE HCL 100MG TABLET PO SCH ×2 (02:40→08:20)
[2022-03-11 04:00] VITALS: BP 106/47
[2022-03-11] MEDS: LACTULOSE 20G/30ML UDC PO SCH ×2 (06:20→14:20)
[2022-03-11] MEDS: LEVOTHYROXINE SODIUM 25MCG TABLET PO SCH (06:20)
[2022-03-11 07:32] LABS: HEMATOCRIT. 35.5 % (42.0-52.0); HEMOGLOBIN. 11.4 g/dL (14.0-18.0); MEAN CORPUSCULAR HEMOGLOBIN 31.3 pg (28.0-32.0); MEAN CORPUSCULAR VOLUME 97.4 fL (80.0-94.0); MEAN PLATELET VOLUME 8.8 fl (7.4-10.4); PLATELET 83 x1000/uL (130-400); RED BLOOD CELL COUNT 3.64 mill/uL (4.7-6.1); RED CELL DISTRIBUTION WIDTH 17.5 % (11.6-14.6)
[2022-03-11 07:49] LABS: PHOSPHORUS 6.1 mg/dL (2.5-4.9)
[2022-03-11 08:00] VITALS: BP 106/41
[2022-03-11] MEDS: CEFTRIAXONE 1,000 MG in DEXTROSE 5% WATER 50 ML IV SCH (08:00)
[2022-03-11] MEDS: MIDODRINE HCL 5MG TABLET PO SCH ×3 (08:37→16:05)
[2022-03-11 12:00] VITALS: BP 106/56
[2022-03-11 16:00] VITALS: BP 106/41
[2022-03-11 16:37] VITALS: BP 106/56
[2022-03-11 23:25] LABS: PLATELET ESTIMATE DECREASED
== END 2022-03-11 19:41 | DRG 871 ==
LOC: ER 12:29 → EDBEDREQ 13:13 → MICUSO 14:59 → EDBEDREQ 15:11 → EDBEDREQTM 15:11 → MICUNO 03-07 20:42 → 8WST 03-09 14:06
PROVIDERS: ADMIT Internal Medicine; ATTEND Internal Medicine
PROC: 5A1D70Z Performance of Urinary Filtration, Intermittent, Less than 6 Hours Per Day (ICD-10-PCS; principal; 2022-03-06)
PROC: 5A1D70Z Performance of Urinary Filtration, Intermittent, Less than 6 Hours Per Day (ICD-10-PCS; 2022-03-08)
PROC: 02HV33Z Insertion of Infusion Device into Superior Vena Cava, Percutaneous Approach (ICD-10-PCS; 2022-03-08)
PROC: B548ZZA Ultrasonography of Superior Vena Cava, Guidance (ICD-10-PCS; 2022-03-08)
PROC: 4A00X4Z Measurement of Central Nervous Electrical Activity, External Approach (ICD-10-PCS; 2022-03-09)
PROC: 5A1D70Z Performance of Urinary Filtration, Intermittent, Less than 6 Hours Per Day (ICD-10-PCS; 2022-03-10)
DX: A41.59 Other Gram-negative sepsis (principal); E43 Unspecified severe protein-calorie malnutrition; I21.4 Non-ST elevation (NSTEMI) myocardial infarction; N18.6 End stage renal disease; R65.21 Severe sepsis with septic shock; J96.01 Acute respiratory failure with hypoxia; G92.8 Other toxic encephalopathy; I50.33 Acute on chronic diastolic (congestive) heart failure; I13.2 Hypertensive heart and chronic kidney disease with heart failure and with stage 5 chronic kidney disease, or end stage renal disease; D61.818 Other pancytopenia; I42.9 Cardiomyopathy, unspecified; N25.81 Secondary hyperparathyroidism of renal origin; E72.20 Disorder of urea cycle metabolism, unspecified; R18.8 Other ascites; E87.5 Hyperkalemia; E11.22 Type 2 diabetes mellitus with diabetic chronic kidney disease; I48.0 Paroxysmal atrial fibrillation; E78.5 Hyperlipidemia, unspecified; B96.1 Klebsiella pneumoniae [K. pneumoniae] as the cause of diseases classified elsewhere; E03.9 Hypothyroidism, unspecified; K74.60 Unspecified cirrhosis of liver; Z20.822 Contact with and (suspected) exposure to COVID-19; E78.00 Pure hypercholesterolemia, unspecified; I25.10 Atherosclerotic heart disease of native coronary artery without angina pectoris; D69.6 Thrombocytopenia, unspecified; Z91.15 Patient's noncompliance with renal dialysis; Z88.8 Allergy status to other drugs, medicaments and biological substances; Z79.899 Other long term (current) drug therapy; Z99.2 Dependence on renal dialysis; Z82.49 Family history of ischemic heart disease and other diseases of the circulatory system; Z68.25 Body mass index [BMI] 25.0-25.9, adult
CPT/HCPCS: 36415; 36573; 36600; 71045; 73560; 74176; 80048; 80053; 82140; 82375; 82550; 82553; 82805; 82962; 83735; 83880; 84100; 84439; 84443; 84480; 84484; 85025; 86705; 86709; 86803; 87077; 87186; 87340; 87426; 90935; 92610; 93005; 95816; 97162; 99291; C1725; J0278; J0610; J0692; J0696; J1265; J1650; J1815; J3490; J7042; J7050; J7060; P9047

== ENCOUNTER 2022-03-24 05:21 | Inpatient (IN) | payer MEDICARE, MEDICAID ==
[~2022-03-24] VITALS: Ht 165.1 cm; Wt 73.9 kg
[2022-03-24] MEDS ORDERED: SODIUM CHLORIDE 0.9% 1,000 ML IV ONE (05:30)
[2022-03-24 06:24] LABS: HEMATOCRIT. 33.7 % (42.0-52.0); HEMOGLOBIN. 11.4 g/dL (14.0-18.0); MEAN CORPUSCULAR HEMOGLOBIN 31.5 pg (28.0-32.0); MEAN CORPUSCULAR VOLUME 93.2 fL (80.0-94.0); MEAN PLATELET VOLUME 8.1 fl (7.4-10.4); PLATELET 127 x1000/uL (130-400); RED BLOOD CELL COUNT 3.61 mill/uL (4.7-6.1); RED CELL DISTRIBUTION WIDTH 17.1 % (11.6-14.6)
[2022-03-24 06:36] LABS: D-DIMER 5.1 mg/L FEU (<0.50); INR 1.3; PROTHROMBIN TIME 13.5 sec (9.6-11.0)
[2022-03-24 06:55] LABS: CHLORIDE 94 mEq/L (98-107)
[2022-03-24 07:31] LABS: PLATELET ESTIMATE SLIGHTLY DECREASED
[2022-03-24] MEDS ORDERED: ASPIRIN 325MG EC TABLET PO ONE (08:30)
[2022-03-24] MEDS ORDERED: SODIUM CHLORIDE 0.9% 1000ML BAG (SEPSIS BOLUS) IV ONE (08:30)
[2022-03-24] MEDS ORDERED: VANCOMYCIN 1G PREMIX 200 ML IV ONE (08:30)
[2022-03-24] MEDS ORDERED: PIPERACILLIN/TAZ 3.375G PREMIX 50 ML IV ONE (08:30)
[2022-03-24 13:00] VITALS: BP 134/75
[2022-03-24] MEDS ORDERED: CEFEPIME 1,000 MG in DEXTROSE 5% WATER 50 ML IV SCH (13:30)
[2022-03-24] MEDS ORDERED: SODIUM CHLORIDE 0.9% 1,000 ML IV SCH (15:45)
[2022-03-24 16:00] VITALS: BP 125/75
[2022-03-24] MEDS ORDERED: IPRATROPIUM/ALBUTEROL 0.5-3(2.5)MG/3ML NEB HHN SCH (16:00)
[2022-03-24] MEDS ORDERED: IPRATROPIUM BROMIDE (0.02%) 0.5MG/2.5ML NEB HHN PRN ×2 (16:00→17:00)
[2022-03-24 16:25] VITALS: BP 134/75
[2022-03-24] MEDS: DOXYCYCLINE HYCLATE 100MG CAPSULE PO SCH (17:00)
[2022-03-24] MEDS ORDERED: ALBUTEROL (0.083%) 2.5MG/3ML NEB HHN PRN (17:00)
[2022-03-24] MEDS ORDERED: IPRATROPIUM/ALBUTEROL 0.5-3(2.5)MG/3ML NEB HHN PRN (17:00)
[2022-03-24] MEDS: CEFEPIME 1,000 MG in DEXTROSE 5% WATER 50 ML IV SCH (17:53)
[2022-03-24] MEDS ORDERED: HALOPERIDOL LACTATE 5MG/ML VIAL IM NR (18:00)
[2022-03-24 20:00] VITALS: BP 125/78
[2022-03-24] MEDS ORDERED: ONDANSETRON HCL 4MG/2ML INJ IV PRN (21:00)
[2022-03-24] MEDS: IPRATROPIUM BROMIDE (0.02%) 0.5MG/2.5ML NEB HHN SCH (21:17)
[2022-03-24] MEDS: ALBUTEROL (0.083%) 2.5MG/3ML NEB HHN SCH (21:17)
[2022-03-24] MEDS: LACTULOSE 20G/30ML UDC PO SCH (21:41)
[2022-03-24] MEDS: PANTOPRAZOLE 80 MG in SODIUM CHLORIDE 0.9% 100 ML IV SCH (22:22)
[2022-03-25] VITALS (7 sets, daily range): BP systolic 101–128; BP diastolic 30–84
[2022-03-25] MEDS: IPRATROPIUM BROMIDE (0.02%) 0.5MG/2.5ML NEB HHN SCH ×6 (00:55→21:42)
[2022-03-25] MEDS: ALBUTEROL (0.083%) 2.5MG/3ML NEB HHN SCH ×6 (00:55→21:43)
[2022-03-25] MEDS: LACTULOSE ENEMA 1,000ML BOTTLE PR SCH ×2 (01:45→05:38)
[2022-03-25 01:58] LABS: HEMATOCRIT 33.4 % (42.0-52.0); HEMOGLOBIN 10.9 g/dL (14.0-18.0)
[2022-03-25] MEDS: LACTULOSE 20G/30ML UDC PO SCH ×4 (05:16→23:23)
[2022-03-25] MEDS: AMIODARONE HCL 200 MG TABLET PO SCH ×2 (09:00→10:06)
[2022-03-25] MEDS: DOXYCYCLINE HYCLATE 100MG CAPSULE PO SCH ×2 (09:00→10:05)
[2022-03-25] MEDS: PANTOPRAZOLE 80 MG in SODIUM CHLORIDE 0.9% 100 ML IV SCH (09:43)
[2022-03-25 13:15] LABS: HEMATOCRIT. 31.6 % (42.0-52.0); HEMOGLOBIN. 10.3 g/dL (14.0-18.0); MEAN CORPUSCULAR HEMOGLOBIN 31.1 pg (28.0-32.0); MEAN PLATELET VOLUME 8.4 fl (7.4-10.4); PLATELET 114 x1000/uL (130-400); RED BLOOD CELL COUNT 3.33 mill/uL (4.7-6.1); RED CELL DISTRIBUTION WIDTH 16.9 % (11.6-14.6)
[2022-03-25 14:17] LABS: VITAMIN B12 SERUM > 2000.0 pg/mL (211-911)
[2022-03-25 14:22] LABS: PLATELET ESTIMATE DECREASED
[2022-03-25 17:50] LABS: FERRITIN 809 ng/mL (22-322)
[2022-03-25] MEDS: PANTOPRAZOLE SODIUM 40 MG/VIAL IV SCH (18:33)
[2022-03-25] MEDS: CEFEPIME 1,000 MG in DEXTROSE 5% WATER 50 ML IV SCH (18:33)
[2022-03-25 19:42] LABS: HEMATOCRIT 32.6 % (42.0-52.0); HEMOGLOBIN 10.5 g/dL (14.0-18.0)
[2022-03-25 20:17] LABS: HEPATITIS B SURFACE ANTIGEN NEGATIVE
[2022-03-25] MEDS: ATORVASTATIN CALCIUM 40MG TABLET PO SCH (21:26)
[2022-03-26] VITALS (18 sets, daily range): BP systolic 97–120; BP diastolic 55–70
[2022-03-26 00:58] LABS: HEMATOCRIT 31.9 % (42.0-52.0); HEMOGLOBIN 10.4 g/dL (14.0-18.0)
[2022-03-26] MEDS: IPRATROPIUM BROMIDE (0.02%) 0.5MG/2.5ML NEB HHN SCH ×6 (01:01→20:41)
[2022-03-26] MEDS: ALBUTEROL (0.083%) 2.5MG/3ML NEB HHN SCH ×6 (01:01→20:42)
[2022-03-26] MEDS: LACTULOSE 20G/30ML UDC PO SCH ×3 (05:26→17:15)
[2022-03-26] MEDS: PANTOPRAZOLE SODIUM 40 MG/VIAL IV SCH ×2 (05:27→17:15)
[2022-03-26 07:20] LABS: HEMATOCRIT. 30.5 % (42.0-52.0); HEMOGLOBIN. 10.2 g/dL (14.0-18.0); MEAN CORPUSCULAR HEMOGLOBIN 31.3 pg (28.0-32.0); MEAN CORPUSCULAR VOLUME 93.8 fL (80.0-94.0); MEAN PLATELET VOLUME 8.5 fl (7.4-10.4); PLATELET 122 x1000/uL (130-400); RED BLOOD CELL COUNT 3.25 mill/uL (4.7-6.1); RED CELL DISTRIBUTION WIDTH 16.8 % (11.6-14.6)
[2022-03-26 08:30] LABS: PHOSPHORUS 9.5 mg/dL (2.5-4.9)
[2022-03-26] MEDS: DOXYCYCLINE HYCLATE 100MG CAPSULE PO SCH ×2 (09:08→17:15)
[2022-03-26 10:03] LABS: PLATELET ESTIMATE SLIGHTLY DECREASED
[2022-03-26 13:08] LABS: HEMATOCRIT 28.3 % (42.0-52.0); HEMOGLOBIN 9.2 g/dL (14.0-18.0)
[2022-03-26] MEDS: CEFEPIME 1,000 MG in DEXTROSE 5% WATER 50 ML IV SCH (17:15)
[2022-03-26] MEDS: ATORVASTATIN CALCIUM 40MG TABLET PO SCH (22:08)
[2022-03-27] VITALS: BP 96/53
[2022-03-27] MEDS: ALBUTEROL (0.083%) 2.5MG/3ML NEB HHN SCH ×7 (00:05→22:55)
[2022-03-27] MEDS: IPRATROPIUM BROMIDE (0.02%) 0.5MG/2.5ML NEB HHN SCH ×6 (00:05→22:55)
[2022-03-27] MEDS: LACTULOSE 20G/30ML UDC PO SCH ×4 (00:31→18:42)
[2022-03-27 04:00] VITALS: BP 106/58
[2022-03-27] MEDS: PANTOPRAZOLE SODIUM 40 MG/VIAL IV SCH ×2 (05:51→18:42)
[2022-03-27 06:28] LABS: HEMATOCRIT. 30.6 % (42.0-52.0); HEMOGLOBIN. 10.1 g/dL (14.0-18.0); MEAN CORPUSCULAR HEMOGLOBIN 30.9 pg (28.0-32.0); MEAN CORPUSCULAR VOLUME 93.7 fL (80.0-94.0); MEAN PLATELET VOLUME 8.3 fl (7.4-10.4); PLATELET 123 x1000/uL (130-400); RED BLOOD CELL COUNT 3.26 mill/uL (4.7-6.1); RED CELL DISTRIBUTION WIDTH 16.5 % (11.6-14.6)
[2022-03-27 08:00] VITALS: BP 138/52
[2022-03-27] MEDS: DOXYCYCLINE HYCLATE 100MG CAPSULE PO SCH ×2 (08:57→17:00)
[2022-03-27] MEDS: AMIODARONE HCL 200 MG TABLET PO SCH (08:57)
[2022-03-27 11:08] LABS: PLATELET ESTIMATE SLIGHTLY DECREASED
[2022-03-27 12:00] VITALS: BP 134/52
[2022-03-27 16:00] VITALS: BP 141/60
[2022-03-27] MEDS: CEFEPIME 1,000 MG in DEXTROSE 5% WATER 50 ML IV SCH (18:42)
[2022-03-27 20:00] VITALS: BP 116/58
[2022-03-27] MEDS: ATORVASTATIN CALCIUM 40MG TABLET PO SCH (21:34)
[2022-03-28] VITALS: BP 106/53
[2022-03-28] MEDS: LACTULOSE 20G/30ML UDC PO SCH ×4 (00:52→17:39)
[2022-03-28] MEDS: IPRATROPIUM BROMIDE (0.02%) 0.5MG/2.5ML NEB HHN SCH ×4 (02:24→17:10)
[2022-03-28] MEDS: ALBUTEROL (0.083%) 2.5MG/3ML NEB HHN SCH ×4 (02:24→17:10)
[2022-03-28 04:00] VITALS: BP 100/55
[2022-03-28] MEDS: PANTOPRAZOLE SODIUM 40 MG/VIAL IV SCH ×2 (05:45→17:38)
[2022-03-28 06:27] LABS: HEMATOCRIT. 29.6 % (42.0-52.0); HEMOGLOBIN. 9.9 g/dL (14.0-18.0); MEAN CORPUSCULAR HEMOGLOBIN 31.4 pg (28.0-32.0); MEAN CORPUSCULAR VOLUME 94.1 fL (80.0-94.0); MEAN PLATELET VOLUME 8.2 fl (7.4-10.4); PLATELET 112 x1000/uL (130-400); RED BLOOD CELL COUNT 3.15 mill/uL (4.7-6.1); RED CELL DISTRIBUTION WIDTH 16.7 % (11.6-14.6)
[2022-03-28 08:00] VITALS: BP 106/58
[2022-03-28 08:26] LABS: PHOSPHORUS 7.8 mg/dL (2.5-4.9)
[2022-03-28] MEDS: DOXYCYCLINE HYCLATE 100MG CAPSULE PO SCH ×2 (09:07→17:38)
[2022-03-28] MEDS: AMIODARONE HCL 200 MG TABLET PO SCH (09:08)
[2022-03-28 11:42] LABS: PLATELET ESTIMATE MARKEDLY DECREASED
[2022-03-28] MEDS ORDERED: DOXY100C5 PO (11:58)
[2022-03-28] MEDS ORDERED: LACT10SO7 PO (11:58)
[2022-03-28 12:00] VITALS: BP 111/60
[2022-03-28 12:38] VITALS: BP 106/58
[2022-03-28 16:00] VITALS: BP 113/63
[2022-03-28] MEDS: CEFEPIME 1,000 MG in DEXTROSE 5% WATER 50 ML IV SCH (17:39)
== END 2022-03-28 19:40 | DRG 871 ==
LOC: ER 05:21 → 8WST 10:23 → EDBEDREQTM 10:38 → EDBEDREQ 10:38 → 7EST 16:47
PROVIDERS: ADMIT Internal Medicine; ATTEND Internal Medicine
PROC: 4A00X4Z Measurement of Central Nervous Electrical Activity, External Approach (ICD-10-PCS; principal; 2022-03-25)
PROC: 5A1D70Z Performance of Urinary Filtration, Intermittent, Less than 6 Hours Per Day (ICD-10-PCS; 2022-03-26)
DX: A41.9 Sepsis, unspecified organism (principal); G93.41 Metabolic encephalopathy; I21.4 Non-ST elevation (NSTEMI) myocardial infarction; J18.9 Pneumonia, unspecified organism; N18.6 End stage renal disease; E72.20 Disorder of urea cycle metabolism, unspecified; E87.20 Acidosis, unspecified; I42.9 Cardiomyopathy, unspecified; R18.8 Other ascites; D61.818 Other pancytopenia; E44.0 Moderate protein-calorie malnutrition; K76.6 Portal hypertension; N25.81 Secondary hyperparathyroidism of renal origin; I13.2 Hypertensive heart and chronic kidney disease with heart failure and with stage 5 chronic kidney disease, or end stage renal disease; I50.30 Unspecified diastolic (congestive) heart failure; I48.19 Other persistent atrial fibrillation; J91.8 Pleural effusion in other conditions classified elsewhere; Z20.822 Contact with and (suspected) exposure to COVID-19; D69.6 Thrombocytopenia, unspecified; E78.5 Hyperlipidemia, unspecified; K74.60 Unspecified cirrhosis of liver; I48.0 Paroxysmal atrial fibrillation; D75.839 Thrombocytosis, unspecified; K76.82 Hepatic encephalopathy; D53.9 Nutritional anemia, unspecified; D63.8 Anemia in other chronic diseases classified elsewhere; E11.22 Type 2 diabetes mellitus with diabetic chronic kidney disease; I07.1 Rheumatic tricuspid insufficiency; R65.20 Severe sepsis without septic shock; I25.10 Atherosclerotic heart disease of native coronary artery without angina pectoris; I25.2 Old myocardial infarction; Z99.2 Dependence on renal dialysis; Z78.1 Physical restraint status; Z79.899 Other long term (current) drug therapy; Z82.49 Family history of ischemic heart disease and other diseases of the circulatory system; Z88.8 Allergy status to other drugs, medicaments and biological substances
CPT/HCPCS: 36415; 71045; 71250; 76700; 80048; 80053; 80076; 82140; 82248; 82270; 82607; 82728; 82746; 82962; 83540; 83550; 83605; 83735; 83880; 84100; 84145; 84484; 85014; 85018; 85025; 85044; 85379; 86705; 86709; 86803; 86850; 86900; 87340; 87426; 87804; 90935; 93005; 94640; 95816; 97162; 99291; C9113; J0692; J1630; J2543; J3370; J7030; J7050; J7060

== ENCOUNTER 2022-03-30 16:19 | Emergency (ER) | payer MEDICARE, MEDICAID ==
[~2022-03-30] VITALS: Ht 165.1 cm; Wt 64.0 kg
[~2022-03-30 16:19] MED LIST changes: +DOXY100C5 PO; +LACT10SO7 PO; -LYR25 PO
[2022-03-30 20:31] VITALS: BP 95/61
== END 2022-03-30 20:39 ==
LOC: ER 16:19
DX: I95.9 Hypotension, unspecified (principal); N18.6 End stage renal disease; Z99.2 Dependence on renal dialysis; I50.9 Heart failure, unspecified; Z88.6 Allergy status to analgesic agent; Z88.5 Allergy status to narcotic agent
CPT/HCPCS: 99283

== ENCOUNTER 2022-04-05 04:39 | Inpatient (IN) | payer MEDICARE, MEDICAID ==
[~2022-04-05] VITALS: Ht 160 cm; Wt 70.8 kg
[2022-04-05] VITALS (13 sets, daily range): BP systolic 67–183; BP diastolic 29–154
[2022-04-05] MEDS ORDERED: DEXTROSE 50% WATER 50ML SYRINGE IV ONE ×4 (05:00→13:30)
[2022-04-05] MEDS ORDERED: DEXT 5%/0.9% NACL 500 ML IV ONE (05:15)
[2022-04-05] MEDS ORDERED: LORAZEPAM 2MG/ML CPJ IV ONE (05:15)
[2022-04-05] MEDS ORDERED: SODIUM CHLORIDE 0.9% 500 ML IV ONE (05:15)
[2022-04-05] MEDS ORDERED: PIPERACILLIN/TAZOBACTAM 3.375GM/50ML PREMIX IV ONE (05:45)
[2022-04-05] MEDS ORDERED: VANCOMYCIN 1G PREMIX 200 ML IV SCH (05:45)
[2022-04-05] MEDS ORDERED: PIPERACILLIN/TAZ 3.375G PREMIX 50 ML IV NR (05:45)
[2022-04-05 06:03] LABS: HEMATOCRIT. 31.2 % (42.0-52.0); HEMOGLOBIN. 10.1 g/dL (14.0-18.0); MEAN CORPUSCULAR HEMOGLOBIN 30.8 pg (28.0-32.0); MEAN CORPUSCULAR VOLUME 94.9 fL (80.0-94.0); MEAN PLATELET VOLUME 8.9 fl (7.4-10.4); PLATELET 79 x1000/uL (130-400); RED BLOOD CELL COUNT 3.29 mill/uL (4.7-6.1); RED CELL DISTRIBUTION WIDTH 17.4 % (11.6-14.6)
[2022-04-05 06:19] LABS: CHLORIDE 92 mEq/L (98-107)
[2022-04-05 06:34] LABS: ETHANOL BLOOD < 10 mg/dL
[2022-04-05 08:25] LABS: PLATELET ESTIMATE DECREASED
[2022-04-05] MEDS ORDERED: DEXT 10% WATER 1,000 ML IV SCH ×2 (11:00→20:45)
[2022-04-05] MEDS ORDERED: DEXT 10%/0.9% NACL 1,000 ML IV SCH (11:30)
[2022-04-05] MEDS: LEVOTHYROXINE SODIUM 50MCG TABLET PO SCH (11:30)
[2022-04-05] MEDS: MIDODRINE HCL 5MG TABLET PO SCH ×2 (13:00→16:45)
[2022-04-05] MEDS: SODIUM CHLORIDE 23.4% 154 MEQ in DEXT 10% WATER 1,000 ML IV SCH ×2 (13:22→21:43)
[2022-04-05] MEDS ORDERED: HEPARIN 5000 UNITS/ML VIAL IV SCH (17:00)
[2022-04-05] MEDS ORDERED: CLONIDINE 0.1MG TABLET PO PRN (17:45)
[2022-04-05] MEDS: AMIODARONE HCL 200 MG TABLET PO SCH (19:01)
[2022-04-05] MEDS: LACTULOSE 20G/30ML UDC PO SCH (19:01)
[2022-04-05] MEDS: ATORVASTATIN CALCIUM 40MG TABLET PO SCH (21:00)
[2022-04-05 22:09] LABS: BG BASE EXCESS 1.4 mmol/L (-2.0-2.0); BG CARBOXYHEMOGLOBIN 0.6 % (0.5-1.5); BG DEOXYHEMOGLOBIN 0.2 % (0.0-5.0); BG FRACTION INSPIRED OXYGEN 100; BG HCO3 ACT 25.5 mmol/L (22.0-26.0); BG METHEMOGLOBIN 0.3 % (0.0-1.5); BG OXYGEN SATURATION 99.8 % (92.0-98.5); BG OXYHEMOGLOBIN 98.9 % (94.0-97.0); BG PCO2 38.1 mmHg (35.0-45.0); BG PH 7.443 (7.350-7.450); BG PO2 379.7 mmHg (75.0-100.0); BG SAMPLE SITE LEFT FEMORAL; BG TOTAL HEMOGLOBIN 10.7 g/dL (12.0-18.0); BG VENT MODE VENT - AC
[2022-04-05] MEDS: DEXTROSE 50% WATER 50ML SYRINGE IV PRN (22:46)
[2022-04-05] MEDS: NOREPINEPHRINE 8 MG in DEXT 5% WATER 242 ML IV PRN (22:50)
[2022-04-06] VITALS (101 sets, daily range): BP systolic 53–172; BP diastolic 16–144
[2022-04-06] MEDS: LACTULOSE 20G/30ML UDC PO SCH ×4 (01:56→21:41)
[2022-04-06 05:39] LABS: HEMATOCRIT. 34.8 % (42.0-52.0); HEMOGLOBIN. 11.6 g/dL (14.0-18.0); MEAN CORPUSCULAR HEMOGLOBIN 30.9 pg (28.0-32.0); MEAN CORPUSCULAR VOLUME 92.6 fL (80.0-94.0); MEAN PLATELET VOLUME 9.1 fl (7.4-10.4); PLATELET 101 x1000/uL (130-400); RED BLOOD CELL COUNT 3.76 mill/uL (4.7-6.1); RED CELL DISTRIBUTION WIDTH 16.9 % (11.6-14.6)
[2022-04-06 05:55] LABS: CHLORIDE 90 mEq/L (98-107)
[2022-04-06 06:03] LABS: INR 1.3; PHOSPHORUS 6.6 mg/dL (2.5-4.9); PROTHROMBIN TIME 13.7 sec (9.6-11.0)
[2022-04-06] MEDS: LEVOTHYROXINE SODIUM 50MCG TABLET PO SCH (06:27)
[2022-04-06 08:35] LABS: PLATELET ESTIMATE SLIGHTLY DECREASED
[2022-04-06] MEDS ORDERED: MIDODRINE HCL 5MG TABLET PO SCH (09:00)
[2022-04-06] MEDS: FOLIC ACID/VITAMIN B COMP W-C TABLET PO SCH (09:10)
[2022-04-06 09:23] LABS: BG BASE EXCESS 0.6 mmol/L (-2.0-2.0); BG CARBOXYHEMOGLOBIN 0.3 % (0.5-1.5); BG DEOXYHEMOGLOBIN 3.8 % (0.0-5.0); BG FRACTION INSPIRED OXYGEN 50; BG HCO3 ACT 24.5 mmol/L (22.0-26.0); BG METHEMOGLOBIN 0.3 % (0.0-1.5); BG OXYGEN SATURATION 96.2 % (92.0-98.5); BG OXYHEMOGLOBIN 95.6 % (94.0-97.0); BG PCO2 36.5 mmHg (35.0-45.0); BG PH 7.444 (7.350-7.450); BG PO2 89.6 mmHg (75.0-100.0); BG SAMPLE SITE RIGHT RADIAL; BG TOTAL HEMOGLOBIN 11.9 g/dL (12.0-18.0); BG VENT MODE VENT - AC
[2022-04-06] MEDS ORDERED: LORAZEPAM 2MG/ML CPJ IV PRN (09:45)
[2022-04-06] MEDS: PROPOFOL 10MG/ML 100ML 100 ML IV PRN ×3 (10:00→21:42)
[2022-04-06] MEDS ORDERED: LIDOCAINE HCL 1% 30ML VIAL (10MG/ML) ONE (10:11)
[2022-04-06] MEDS: NOREPINEPHRINE 8 MG in DEXT 5% WATER 242 ML IV PRN ×2 (10:19→13:01)
[2022-04-06] MEDS ORDERED: SODIUM CHLORIDE 23.4% 154 MEQ in DEXT 10% WATER 1,000 ML IV SCH (13:00)
[2022-04-06] MEDS: CALCIUM ACETATE 667MG CAPSULE PO SCH ×2 (14:55→17:12)
[2022-04-06] MEDS: AMIODARONE HCL 200 MG TABLET PO SCH (14:55)
[2022-04-06] MEDS: BLOOD SUGAR DIAGNOSTIC STRIP TEST SCH ×2 (16:00→20:00)
[2022-04-06] MEDS: DOXYCYCLINE HYCLATE 100MG CAPSULE PO SCH (17:12)
[2022-04-06] MEDS: CEFEPIME 1,000 MG in DEXTROSE 5% WATER 50 ML IV SCH (17:13)
[2022-04-06] MEDS ORDERED: PROPOFOL 10MG/ML 100ML 100 ML IV PRN (18:45)
[2022-04-06] MEDS: IPRATROPIUM/ALBUTEROL 0.5-3(2.5)MG/3ML NEB HHN SCH (20:35)
[2022-04-06] MEDS: ATORVASTATIN CALCIUM 40MG TABLET PO SCH (21:41)
[2022-04-06] MEDS: NOREPINEPHRINE 32 MG in DEXT 5% WATER 218 ML IV PRN (21:42)
[2022-04-07] VITALS (94 sets, daily range): BP systolic 66–159; BP diastolic 24–126
[2022-04-07] MEDS: IPRATROPIUM/ALBUTEROL 0.5-3(2.5)MG/3ML NEB HHN SCH ×4 (01:20→20:31)
[2022-04-07] MEDS: BLOOD SUGAR DIAGNOSTIC STRIP TEST SCH ×5 (04:00→18:17)
[2022-04-07 05:25] LABS: HEMATOCRIT. 30.3 % (42.0-52.0); HEMOGLOBIN. 9.9 g/dL (14.0-18.0); MEAN CORPUSCULAR HEMOGLOBIN 30.7 pg (28.0-32.0); MEAN CORPUSCULAR VOLUME 93.6 fL (80.0-94.0); MEAN PLATELET VOLUME 9.4 fl (7.4-10.4); PLATELET 85 x1000/uL (130-400); RED BLOOD CELL COUNT 3.23 mill/uL (4.7-6.1); RED CELL DISTRIBUTION WIDTH 17.3 % (11.6-14.6)
[2022-04-07 05:43] LABS: CHLORIDE 98 mEq/L (98-107)
[2022-04-07 05:56] LABS: PHOSPHORUS 5.4 mg/dL (2.5-4.9)
[2022-04-07] MEDS: LACTULOSE 20G/30ML UDC PO SCH ×3 (06:46→21:02)
[2022-04-07] MEDS: CALCIUM ACETATE 667MG CAPSULE PO SCH ×3 (06:49→17:34)
[2022-04-07] MEDS: LEVOTHYROXINE SODIUM 100MCG TABLET PO SCH (06:49)
[2022-04-07 07:59] LABS: BG BASE EXCESS -2.2 mmol/L (-2.0-2.0); BG CARBOXYHEMOGLOBIN 0.3 % (0.5-1.5); BG DEOXYHEMOGLOBIN 1.6 % (0.0-5.0); BG FRACTION INSPIRED OXYGEN 50; BG HCO3 ACT 23.5 mmol/L (22.0-26.0); BG METHEMOGLOBIN 0.2 % (0.0-1.5); BG OXYGEN SATURATION 98.4 % (92.0-98.5); BG OXYHEMOGLOBIN 97.9 % (94.0-97.0); BG PCO2 44.2 mmHg (35.0-45.0); BG PH 7.343 (7.350-7.450); BG PO2 140.4 mmHg (75.0-100.0); BG SAMPLE SITE RIGHT RADIAL; BG VENT MODE VENT - AC
[2022-04-07] MEDS: DOXYCYCLINE HYCLATE 100MG CAPSULE PO SCH ×2 (09:33→17:34)
[2022-04-07] MEDS: AMIODARONE HCL 200 MG TABLET PO SCH (09:33)
[2022-04-07] MEDS: FOLIC ACID/VITAMIN B COMP W-C TABLET PO SCH (09:34)
[2022-04-07 10:55] LABS: PLATELET ESTIMATE DECREASED
[2022-04-07 11:56] LABS: BG BASE EXCESS -3.9 mmol/L (-2.0-2.0); BG CARBOXYHEMOGLOBIN 0.3 % (0.5-1.5); BG DEOXYHEMOGLOBIN 3.8 % (0.0-5.0); BG FRACTION INSPIRED OXYGEN 40; BG HCO3 ACT 22.5 mmol/L (22.0-26.0); BG METHEMOGLOBIN 0.4 % (0.0-1.5); BG OXYGEN SATURATION 96.2 % (92.0-98.5); BG OXYHEMOGLOBIN 95.5 % (94.0-97.0); BG PCO2 46.9 mmHg (35.0-45.0); BG PH 7.299 (7.350-7.450); BG PO2 99.5 mmHg (75.0-100.0); BG SAMPLE SITE RIGHT RADIAL; BG TOTAL HEMOGLOBIN 10.4 g/dL (12.0-18.0); BG VENT MODE VENT - CPAP
[2022-04-07] MEDS ORDERED: DEXTROSE 5% IV SCH (12:30)
[2022-04-07] MEDS ORDERED: SODIUM CHLORIDE IV SCH (12:30)
[2022-04-07] MEDS ORDERED: WATER IV SCH (12:30)
[2022-04-07] MEDS: DEXT 5%/0.9% NACL 1,000 ML IV SCH (13:57)
[2022-04-07] MEDS: CEFEPIME 1,000 MG in DEXTROSE 5% WATER 50 ML IV SCH (17:34)
[2022-04-07] MEDS ORDERED: PROPOFOL 10MG/ML 100ML 100 ML IV PRN (20:15)
[2022-04-07] MEDS: ATORVASTATIN CALCIUM 40MG TABLET PO SCH (21:02)
[2022-04-08] VITALS (97 sets, daily range): BP systolic 83–186; BP diastolic 25–163
[2022-04-08 05:32] LABS: HEMOGLOBIN. 9.5 g/dL (14.0-18.0); MEAN CORPUSCULAR HEMOGLOBIN 30.4 pg (28.0-32.0); MEAN CORPUSCULAR VOLUME 92.9 fL (80.0-94.0); MEAN PLATELET VOLUME 8.9 fl (7.4-10.4); PLATELET 70 x1000/uL (130-400); RED BLOOD CELL COUNT 3.12 mill/uL (4.7-6.1); RED CELL DISTRIBUTION WIDTH 17.2 % (11.6-14.6)
[2022-04-08] MEDS: BLOOD SUGAR DIAGNOSTIC STRIP TEST SCH ×4 (05:51→18:19)
[2022-04-08] MEDS: CALCIUM ACETATE 667MG CAPSULE PO SCH ×3 (06:23→17:37)
[2022-04-08] MEDS: LACTULOSE 20G/30ML UDC PO SCH ×3 (06:23→22:00)
[2022-04-08] MEDS: LEVOTHYROXINE SODIUM 100MCG TABLET PO SCH (06:37)
[2022-04-08 07:04] LABS: PHOSPHORUS 6.6 mg/dL (2.5-4.9)
[2022-04-08] MEDS: IPRATROPIUM/ALBUTEROL 0.5-3(2.5)MG/3ML NEB HHN SCH ×4 (08:37→20:25)
[2022-04-08 08:53] LABS: BG BASE EXCESS 1.1 mmol/L (-2.0-2.0); BG CARBOXYHEMOGLOBIN 0.8 % (0.5-1.5); BG DEOXYHEMOGLOBIN 1.9 % (0.0-5.0); BG FRACTION INSPIRED OXYGEN 30; BG HCO3 ACT 25.2 mmol/L (22.0-26.0); BG METHEMOGLOBIN 0.3 % (0.0-1.5); BG OXYGEN SATURATION 98.1 % (92.0-98.5); BG PCO2 38.2 mmHg (35.0-45.0); BG PH 7.438 (7.350-7.450); BG SAMPLE SITE RIGHT RADIAL; BG VENT MODE VENT - AC/VC
[2022-04-08 09:21] LABS: PLATELET ESTIMATE DECREASED
[2022-04-08] MEDS: FOLIC ACID/VITAMIN B COMP W-C TABLET PO SCH (10:14)
[2022-04-08] MEDS: AMIODARONE HCL 200 MG TABLET PO SCH (10:14)
[2022-04-08] MEDS: DOXYCYCLINE HYCLATE 100MG CAPSULE PO SCH ×2 (10:14→17:37)
[2022-04-08 11:52] LABS: INR 1.3; PROTHROMBIN TIME 13.8 sec (9.6-11.0)
[2022-04-08] MEDS: DEXT 5%/0.9% NACL 1,000 ML IV SCH (12:30)
[2022-04-08 14:37] LABS: BG BASE EXCESS -0.3 mmol/L (-2.0-2.0); BG CARBOXYHEMOGLOBIN 0.4 % (0.5-1.5); BG DEOXYHEMOGLOBIN 4.2 % (0.0-5.0); BG FRACTION INSPIRED OXYGEN 30; BG HCO3 ACT 25.7 mmol/L (22.0-26.0); BG METHEMOGLOBIN 0.2 % (0.0-1.5); BG OXYGEN SATURATION 95.8 % (92.0-98.5); BG OXYHEMOGLOBIN 95.2 % (94.0-97.0); BG PCO2 48.3 mmHg (35.0-45.0); BG PH 7.344 (7.350-7.450); BG PO2 94.6 mmHg (75.0-100.0); BG SAMPLE SITE RIGHT RADIAL; BG VENT MODE VENT - CPAP
[2022-04-08] MEDS: NOREPINEPHRINE 32 MG in DEXT 5% WATER 218 ML IV PRN (14:57)
[2022-04-08] MEDS: CEFEPIME 1,000 MG in DEXTROSE 5% WATER 50 ML IV SCH (17:37)
[2022-04-08] MEDS: ATORVASTATIN CALCIUM 40MG TABLET PO SCH (20:35)
[2022-04-08] MEDS ORDERED: EPOETIN ALFA-EPBX 4,000 UNIT/ML VIAL SUBCUT SCH (21:00)
[2022-04-09] VITALS (88 sets, daily range): BP systolic 62–185; BP diastolic 14–122
[2022-04-09] MEDS: IPRATROPIUM/ALBUTEROL 0.5-3(2.5)MG/3ML NEB HHN SCH ×4 (01:56→20:58)
[2022-04-09] MEDS: LACTULOSE 20G/30ML UDC PO SCH ×3 (05:38→22:12)
[2022-04-09] MEDS: BLOOD SUGAR DIAGNOSTIC STRIP TEST SCH ×4 (05:38→18:00)
[2022-04-09 05:40] LABS: HEMATOCRIT. 26.8 % (42.0-52.0); HEMOGLOBIN. 8.9 g/dL (14.0-18.0); MEAN CORPUSCULAR HEMOGLOBIN 30.5 pg (28.0-32.0); MEAN PLATELET VOLUME 8.8 fl (7.4-10.4); PLATELET 67 x1000/uL (130-400); RED BLOOD CELL COUNT 2.91 mill/uL (4.7-6.1); RED CELL DISTRIBUTION WIDTH 16.8 % (11.6-14.6)
[2022-04-09] MEDS: CALCIUM ACETATE 667MG CAPSULE PO SCH ×3 (06:51→17:11)
[2022-04-09] MEDS: DOXYCYCLINE HYCLATE 100MG CAPSULE PO SCH ×2 (08:59→17:11)
[2022-04-09] MEDS: FOLIC ACID/VITAMIN B COMP W-C TABLET PO SCH (08:59)
[2022-04-09] MEDS: AMIODARONE HCL 200 MG TABLET PO SCH (09:00)
[2022-04-09 09:05] LABS: BG BASE EXCESS 0.1 mmol/L (-2.0-2.0); BG CARBOXYHEMOGLOBIN 0.3 % (0.5-1.5); BG FRACTION INSPIRED OXYGEN 32; BG HCO3 ACT 25.6 mmol/L (22.0-26.0); BG METHEMOGLOBIN 0.3 % (0.0-1.5); BG OXYHEMOGLOBIN 97.4 % (94.0-97.0); BG PCO2 45.8 mmHg (35.0-45.0); BG PH 7.366 (7.350-7.450); BG SAMPLE SITE RIGHT RADIAL; BG TOTAL HEMOGLOBIN 9.3 g/dL (12.0-18.0); BG VENT MODE NASAL CANNULA
[2022-04-09 10:24] LABS: PLATELET ESTIMATE DECREASED
[2022-04-09] MEDS: DEXT 5%/0.9% NACL 1,000 ML IV SCH (16:00)
[2022-04-09] MEDS: MIDODRINE HCL 5MG TABLET PO SCH ×2 (16:00→17:11)
[2022-04-09] MEDS: CEFEPIME 1,000 MG in DEXTROSE 5% WATER 50 ML IV SCH (17:11)
[2022-04-09] MEDS: ATORVASTATIN CALCIUM 40MG TABLET PO SCH (22:12)
[2022-04-10] VITALS (79 sets, daily range): BP systolic 71–175; BP diastolic 16–81
[2022-04-10] MEDS: BLOOD SUGAR DIAGNOSTIC STRIP TEST SCH ×5 (00:32→23:40)
[2022-04-10] MEDS: IPRATROPIUM/ALBUTEROL 0.5-3(2.5)MG/3ML NEB HHN SCH ×4 (02:15→20:43)
[2022-04-10] MEDS: LEVOTHYROXINE SODIUM 100MCG TABLET PO SCH ×2 (05:54→06:30)
[2022-04-10] MEDS: LACTULOSE 20G/30ML UDC PO SCH ×3 (05:54→22:00)
[2022-04-10] MEDS: ONDANSETRON HCL 4MG/2ML INJ IV PRN ×2 (07:54→14:49)
[2022-04-10] MEDS ORDERED: ALBUTEROL (0.083%) 2.5MG/3ML NEB HHN PRN (08:45)
[2022-04-10] MEDS: CALCIUM ACETATE 667MG CAPSULE PO SCH ×3 (08:49→20:57)
[2022-04-10] MEDS: FOLIC ACID/VITAMIN B COMP W-C TABLET PO SCH (08:49)
[2022-04-10] MEDS: MIDODRINE HCL 5MG TABLET PO SCH ×3 (08:50→20:58)
[2022-04-10] MEDS: DOXYCYCLINE HYCLATE 100MG CAPSULE PO SCH ×2 (08:50→20:57)
[2022-04-10] MEDS: AMIODARONE HCL 200 MG TABLET PO SCH (09:00)
[2022-04-10 10:32] LABS: HEMATOCRIT. 26.4 % (42.0-52.0); HEMOGLOBIN. 8.7 g/dL (14.0-18.0); MEAN CORPUSCULAR HEMOGLOBIN 30.9 pg (28.0-32.0); MEAN CORPUSCULAR VOLUME 93.6 fL (80.0-94.0); MEAN PLATELET VOLUME 8.7 fl (7.4-10.4); PLATELET 62 x1000/uL (130-400); RED BLOOD CELL COUNT 2.82 mill/uL (4.7-6.1); RED CELL DISTRIBUTION WIDTH 17.3 % (11.6-14.6)
[2022-04-10 10:46] LABS: CHLORIDE 102 mEq/L (98-107)
[2022-04-10 11:15] LABS: PLATELET ESTIMATE DECREASED
[2022-04-10] MEDS: DEXTROSE 50% WATER 50ML SYRINGE IV PRN (11:16)
[2022-04-10] MEDS: ACETAMINOPHEN 325MG TABLET PO PRN (13:27)
[2022-04-10] MEDS: ATORVASTATIN CALCIUM 40MG TABLET PO SCH (20:58)
[2022-04-10] MEDS: CEFEPIME 1,000 MG in DEXTROSE 5% WATER 50 ML IV SCH (21:00)
[2022-04-11] VITALS (92 sets, daily range): BP systolic 48–148; BP diastolic 18–116
[2022-04-11] MEDS: ONDANSETRON HCL 4MG/2ML INJ IV PRN ×2 (00:32→08:16)
[2022-04-11] MEDS: IPRATROPIUM/ALBUTEROL 0.5-3(2.5)MG/3ML NEB HHN SCH ×4 (02:01→20:51)
[2022-04-11] MEDS: PANTOPRAZOLE 40MG DR TABLET PO SCH (05:36)
[2022-04-11 05:39] LABS: HEMATOCRIT. 25.5 % (42.0-52.0); HEMOGLOBIN. 8.4 g/dL (14.0-18.0); MEAN CORPUSCULAR HEMOGLOBIN 30.7 pg (28.0-32.0); MEAN CORPUSCULAR VOLUME 93.5 fL (80.0-94.0); MEAN PLATELET VOLUME 8.8 fl (7.4-10.4); PLATELET 73 x1000/uL (130-400); RED BLOOD CELL COUNT 2.72 mill/uL (4.7-6.1); RED CELL DISTRIBUTION WIDTH 17.4 % (11.6-14.6)
[2022-04-11] MEDS: BLOOD SUGAR DIAGNOSTIC STRIP TEST SCH ×3 (05:46→17:10)
[2022-04-11 05:56] LABS: PHOSPHORUS 3.8 mg/dL (2.5-4.9)
[2022-04-11] MEDS: CALCIUM ACETATE 667MG CAPSULE PO SCH ×3 (06:34→17:09)
[2022-04-11] MEDS: LACTULOSE 20G/30ML UDC PO SCH ×3 (06:34→21:14)
[2022-04-11] MEDS: LEVOTHYROXINE SODIUM 100MCG TABLET PO SCH (06:34)
[2022-04-11] MEDS: DOXYCYCLINE HYCLATE 100MG CAPSULE PO SCH ×2 (08:03→17:09)
[2022-04-11] MEDS: FOLIC ACID/VITAMIN B COMP W-C TABLET PO SCH (08:03)
[2022-04-11] MEDS: MIDODRINE HCL 5MG TABLET PO SCH ×3 (08:04→17:09)
[2022-04-11] MEDS: AMIODARONE HCL 200 MG TABLET PO SCH (08:04)
[2022-04-11 09:51] LABS: PLATELET ESTIMATE DECREASED
[2022-04-11] MEDS: METOCLOPRAMIDE HCL 10MG/2ML VIAL IV SCH (17:09)
[2022-04-11] MEDS: CEFEPIME 1,000 MG in DEXTROSE 5% WATER 50 ML IV SCH (17:10)
[2022-04-11] MEDS: ATORVASTATIN CALCIUM 40MG TABLET PO SCH (20:38)
[2022-04-11] MEDS: EPOETIN ALFA-EPBX 4,000 UNIT/ML VIAL SUBCUT SCH (21:13)
[2022-04-11] MEDS: NOREPINEPHRINE 32 MG in DEXT 5% WATER 218 ML IV PRN (21:14)
[2022-04-12] VITALS (102 sets, daily range): BP systolic 70–163; BP diastolic 15–74
[2022-04-12] MEDS: METOCLOPRAMIDE HCL 10MG/2ML VIAL IV SCH ×4 (00:22→17:10)
[2022-04-12] MEDS: IPRATROPIUM/ALBUTEROL 0.5-3(2.5)MG/3ML NEB HHN SCH ×4 (01:04→20:24)
[2022-04-12 05:31] LABS: HEMATOCRIT. 25.3 % (42.0-52.0); HEMOGLOBIN. 8.2 g/dL (14.0-18.0); MEAN CORPUSCULAR HEMOGLOBIN 30.5 pg (28.0-32.0); MEAN CORPUSCULAR VOLUME 94.5 fL (80.0-94.0); PLATELET 90 x1000/uL (130-400); RED BLOOD CELL COUNT 2.68 mill/uL (4.7-6.1); RED CELL DISTRIBUTION WIDTH 17.2 % (11.6-14.6)
[2022-04-12 05:41] LABS: PHOSPHORUS 4.7 mg/dL (2.5-4.9)
[2022-04-12] MEDS: BLOOD SUGAR DIAGNOSTIC STRIP TEST SCH ×4 (06:00→17:11)
[2022-04-12] MEDS: PANTOPRAZOLE 40MG DR TABLET PO SCH (06:07)
[2022-04-12] MEDS: LEVOTHYROXINE SODIUM 100MCG TABLET PO SCH (06:07)
[2022-04-12] MEDS: CALCIUM ACETATE 667MG CAPSULE PO SCH ×3 (06:07→17:10)
[2022-04-12] MEDS: LACTULOSE 20G/30ML UDC PO SCH ×3 (06:07→21:27)
[2022-04-12] MEDS: AMIODARONE HCL 200 MG TABLET PO SCH (08:21)
[2022-04-12] MEDS: DOXYCYCLINE HYCLATE 100MG CAPSULE PO SCH ×2 (08:21→17:10)
[2022-04-12] MEDS: MIDODRINE HCL 5MG TABLET PO SCH ×3 (08:21→17:11)
[2022-04-12] MEDS: FOLIC ACID/VITAMIN B COMP W-C TABLET PO SCH (08:21)
[2022-04-12 10:55] LABS: PLATELET ESTIMATE DECREASED
[2022-04-12 13:07] LABS: C-PEPTIDE 10.1 ng/mL (1.1-4.4); INSULIN 16.5 uIU/mL (2.6-24.9)
[2022-04-12 15:09] LABS: HEPATITIS B SURFACE ANTIGEN NEGATIVE
[2022-04-12] MEDS: CEFEPIME 1,000 MG in DEXTROSE 5% WATER 50 ML IV SCH (17:10)
[2022-04-12] MEDS: ATORVASTATIN CALCIUM 40MG TABLET PO SCH (21:27)
[2022-04-13] VITALS (102 sets, daily range): BP systolic 47–136; BP diastolic 16–95
[2022-04-13] MEDS: METOCLOPRAMIDE HCL 10MG/2ML VIAL IV SCH ×4 (00:21→17:48)
[2022-04-13] MEDS: IPRATROPIUM/ALBUTEROL 0.5-3(2.5)MG/3ML NEB HHN SCH ×4 (01:17→20:29)
[2022-04-13 05:32] LABS: HEMOGLOBIN. 9.1 g/dL (14.0-18.0); MEAN CORPUSCULAR HEMOGLOBIN 30.9 pg (28.0-32.0); MEAN PLATELET VOLUME 8.5 fl (7.4-10.4); PLATELET 123 x1000/uL (130-400); RED BLOOD CELL COUNT 2.94 mill/uL (4.7-6.1); RED CELL DISTRIBUTION WIDTH 17.2 % (11.6-14.6)
[2022-04-13] MEDS: BLOOD SUGAR DIAGNOSTIC STRIP TEST SCH ×4 (06:00→17:44)
[2022-04-13 06:06] LABS: PHOSPHORUS 4.5 mg/dL (2.5-4.9)
[2022-04-13] MEDS: LACTULOSE 20G/30ML UDC PO SCH ×2 (06:15→13:12)
[2022-04-13] MEDS: LEVOTHYROXINE SODIUM 100MCG TABLET PO SCH (06:15)
[2022-04-13] MEDS: PANTOPRAZOLE 40MG DR TABLET PO SCH (06:15)
[2022-04-13] MEDS: CALCIUM ACETATE 667MG CAPSULE PO SCH ×3 (06:16→17:44)
[2022-04-13 07:30] LABS: NUCLEATED RED BLOOD CELLS 1 /100 WBC; PLATELET ESTIMATE SLIGHTLY DECREASED
[2022-04-13] MEDS: DOXYCYCLINE HYCLATE 100MG CAPSULE PO SCH ×2 (08:52→17:43)
[2022-04-13] MEDS: MIDODRINE HCL 5MG TABLET PO SCH ×3 (08:52→17:44)
[2022-04-13] MEDS: FOLIC ACID/VITAMIN B COMP W-C TABLET PO SCH (08:52)
[2022-04-13] MEDS: AMIODARONE HCL 200 MG TABLET PO SCH (08:52)
[2022-04-13] MEDS: NOREPINEPHRINE 32 MG in DEXT 5% WATER 218 ML IV PRN (12:25)
[2022-04-13] MEDS: CEFEPIME 1,000 MG in DEXTROSE 5% WATER 50 ML IV SCH (17:45)
[2022-04-13] MEDS: ATORVASTATIN CALCIUM 40MG TABLET PO SCH (20:45)
[2022-04-13] MEDS: EPOETIN ALFA-EPBX 4,000 UNIT/ML VIAL SUBCUT SCH (20:45)
[2022-04-14] VITALS (102 sets, daily range): BP systolic 35–183; BP diastolic 16–151
[2022-04-14] MEDS: METOCLOPRAMIDE HCL 10MG/2ML VIAL IV SCH ×4 (01:36→17:13)
[2022-04-14] MEDS: IPRATROPIUM/ALBUTEROL 0.5-3(2.5)MG/3ML NEB HHN SCH ×5 (02:48→21:11)
[2022-04-14 05:22] LABS: BG BASE EXCESS -3.5 mmol/L (-2.0-2.0); BG CARBOXYHEMOGLOBIN 0.6 % (0.5-1.5); BG DEOXYHEMOGLOBIN 1.6 % (0.0-5.0); BG FRACTION INSPIRED OXYGEN 100; BG HCO3 ACT 21.9 mmol/L (22.0-26.0); BG METHEMOGLOBIN 0.2 % (0.0-1.5); BG OXYGEN SATURATION 98.4 % (92.0-98.5); BG OXYHEMOGLOBIN 97.6 % (94.0-97.0); BG PCO2 41.2 mmHg (35.0-45.0); BG PH 7.344 (7.350-7.450); BG PO2 124.6 mmHg (75.0-100.0); BG TOTAL HEMOGLOBIN 9.7 g/dL (12.0-18.0); BG VENT MODE MASK - NRB
[2022-04-14 05:42] LABS: HEMOGLOBIN. 8.7 g/dL (14.0-18.0); MEAN CORPUSCULAR HEMOGLOBIN 30.7 pg (28.0-32.0); MEAN PLATELET VOLUME 8.3 fl (7.4-10.4); PLATELET 109 x1000/uL (130-400); RED BLOOD CELL COUNT 2.84 mill/uL (4.7-6.1); RED CELL DISTRIBUTION WIDTH 17.3 % (11.6-14.6)
[2022-04-14 05:58] LABS: PHOSPHORUS 4.8 mg/dL (2.5-4.9)
[2022-04-14] MEDS: CALCIUM ACETATE 667MG CAPSULE PO SCH ×3 (06:26→17:13)
[2022-04-14] MEDS: PANTOPRAZOLE 40MG DR TABLET PO SCH (06:26)
[2022-04-14] MEDS: BLOOD SUGAR DIAGNOSTIC STRIP TEST SCH ×3 (06:41→18:00)
[2022-04-14] MEDS: NOREPINEPHRINE 32 MG in DEXT 5% WATER 218 ML IV PRN (06:51)
[2022-04-14 07:38] LABS: NUCLEATED RED BLOOD CELLS 2 /100 WBC
[2022-04-14 07:40] LABS: PLATELET ESTIMATE DECREASED
[2022-04-14] MEDS: AMIODARONE HCL 200 MG TABLET PO SCH (08:03)
[2022-04-14] MEDS: FOLIC ACID/VITAMIN B COMP W-C TABLET PO SCH (08:03)
[2022-04-14] MEDS: LEVOTHYROXINE SODIUM 100MCG TABLET PO SCH (08:04)
[2022-04-14] MEDS: DOXYCYCLINE HYCLATE 100MG CAPSULE PO SCH ×2 (08:04→17:13)
[2022-04-14] MEDS: LACTULOSE 20G/30ML UDC PO SCH ×3 (08:06→20:57)
[2022-04-14] MEDS: MIDODRINE HCL 5MG TABLET PO SCH ×3 (08:06→17:00)
[2022-04-14] MEDS ORDERED: FLUDROCORTISONE ACETATE 0.1MG TABLET PO SCH (13:00)
[2022-04-14] MEDS: FLUDROCORTISONE ACETATE 0.1MG TABLET PO SCH (13:50)
[2022-04-14] MEDS: CEFEPIME 1,000 MG in DEXTROSE 5% WATER 50 ML IV SCH (17:14)
[2022-04-14] MEDS: ATORVASTATIN CALCIUM 40MG TABLET PO SCH (20:57)
[2022-04-15] VITALS (63 sets, daily range): BP systolic 59–158; BP diastolic 18–96
[2022-04-15] MEDS: METOCLOPRAMIDE HCL 10MG/2ML VIAL IV SCH ×5 (01:04→23:27)
[2022-04-15] MEDS: IPRATROPIUM/ALBUTEROL 0.5-3(2.5)MG/3ML NEB HHN SCH ×4 (02:21→20:35)
[2022-04-15 05:41] LABS: HEMATOCRIT. 25.3 % (42.0-52.0); HEMOGLOBIN. 8.1 g/dL (14.0-18.0); MEAN CORPUSCULAR HEMOGLOBIN 30.8 pg (28.0-32.0); MEAN CORPUSCULAR VOLUME 96.5 fL (80.0-94.0); MEAN PLATELET VOLUME 8.9 fl (7.4-10.4); PLATELET 73 x1000/uL (130-400); RED BLOOD CELL COUNT 2.62 mill/uL (4.7-6.1); RED CELL DISTRIBUTION WIDTH 17.5 % (11.6-14.6)
[2022-04-15 06:34] LABS: PHOSPHORUS 4.2 mg/dL (2.5-4.9)
[2022-04-15] MEDS: BLOOD SUGAR DIAGNOSTIC STRIP TEST SCH ×5 (06:56→23:27)
[2022-04-15] MEDS: CALCIUM ACETATE 667MG CAPSULE PO SCH ×3 (06:56→17:44)
[2022-04-15] MEDS: LACTULOSE 20G/30ML UDC PO SCH ×2 (06:56→14:00)
[2022-04-15] MEDS: PANTOPRAZOLE 40MG DR TABLET PO SCH (06:56)
[2022-04-15 07:55] LABS: NUCLEATED RED BLOOD CELLS 1 /100 WBC; PLATELET ESTIMATE DECREASED
[2022-04-15] MEDS: LEVOTHYROXINE SODIUM 100MCG TABLET PO SCH (08:48)
[2022-04-15] MEDS: FOLIC ACID/VITAMIN B COMP W-C TABLET PO SCH (08:49)
[2022-04-15] MEDS: DOXYCYCLINE HYCLATE 100MG CAPSULE PO SCH ×2 (08:49→17:44)
[2022-04-15] MEDS: MIDODRINE HCL 5MG TABLET PO SCH ×3 (08:49→17:45)
[2022-04-15] MEDS: FLUDROCORTISONE ACETATE 0.1MG TABLET PO SCH (09:00)
[2022-04-15 13:12] LABS: PRO INSULIN 2.4 pmol/L (0.0-10.0)
[2022-04-15] MEDS ORDERED: VANCOMYCIN 1G PREMIX 200 ML IV NR (13:30)
[2022-04-15] MEDS: CEFEPIME 1,000 MG in DEXTROSE 5% WATER 50 ML IV SCH (17:44)
[2022-04-15] MEDS: NOREPINEPHRINE 32 MG in DEXT 5% WATER 218 ML IV PRN (18:00)
[2022-04-15] MEDS: ATORVASTATIN CALCIUM 40MG TABLET PO SCH (20:29)
[2022-04-16] VITALS (99 sets, daily range): BP systolic 27–165; BP diastolic 13–121
[2022-04-16] MEDS: IPRATROPIUM/ALBUTEROL 0.5-3(2.5)MG/3ML NEB HHN SCH ×4 (02:15→21:50)
[2022-04-16 06:00] LABS: HEMATOCRIT. 28.4 % (42.0-52.0); HEMOGLOBIN. 9.1 g/dL (14.0-18.0); MEAN PLATELET VOLUME 9.3 fl (7.4-10.4); PLATELET 96 x1000/uL (130-400); RED BLOOD CELL COUNT 2.96 mill/uL (4.7-6.1); RED CELL DISTRIBUTION WIDTH 17.5 % (11.6-14.6)
[2022-04-16 06:17] LABS: PHOSPHORUS 4.6 mg/dL (2.5-4.9)
[2022-04-16] MEDS: LEVOTHYROXINE SODIUM 100MCG TABLET PO SCH (06:20)
[2022-04-16] MEDS: METOCLOPRAMIDE HCL 10MG/2ML VIAL IV SCH ×3 (06:20→19:11)
[2022-04-16] MEDS: PANTOPRAZOLE 40MG DR TABLET PO SCH (06:20)
[2022-04-16] MEDS: CALCIUM ACETATE 667MG CAPSULE PO SCH ×3 (06:20→17:40)
[2022-04-16] MEDS: BLOOD SUGAR DIAGNOSTIC STRIP TEST SCH ×3 (06:21→18:00)
[2022-04-16] MEDS: FOLIC ACID/VITAMIN B COMP W-C TABLET PO SCH (10:01)
[2022-04-16] MEDS: MIDODRINE HCL 5MG TABLET PO SCH ×3 (10:01→17:41)
[2022-04-16] MEDS: DOXYCYCLINE HYCLATE 100MG CAPSULE PO SCH ×2 (10:02→17:41)
[2022-04-16] MEDS: FLUDROCORTISONE ACETATE 0.1MG TABLET PO SCH (10:02)
[2022-04-16] MEDS: NOREPINEPHRINE 32 MG in DEXT 5% WATER 218 ML IV PRN (10:03)
[2022-04-16 10:24] LABS: NUCLEATED RED BLOOD CELLS 1 /100 WBC; PLATELET ESTIMATE DECREASED
[2022-04-16] MEDS ORDERED: VANCOMYCIN 750MG PREMIX 150 ML IV SCH (14:00)
[2022-04-16] MEDS: CEFEPIME 1,000 MG in DEXTROSE 5% WATER 50 ML IV SCH (17:41)
[2022-04-16] MEDS: ONDANSETRON HCL 4MG/2ML INJ IV PRN (20:42)
[2022-04-16] MEDS: ATORVASTATIN CALCIUM 40MG TABLET PO SCH (20:42)
[2022-04-16] MEDS: ACETAMINOPHEN 325MG TABLET PO PRN (21:02)
[2022-04-16] MEDS ORDERED: HALOPERIDOL LACTATE 5MG/ML VIAL IM NR (21:30)
[2022-04-17] VITALS (103 sets, daily range): BP systolic 42–146; BP diastolic 13–115
[2022-04-17] MEDS ORDERED: LORAZEPAM 2MG/ML CPJ IV NR (00:45)
[2022-04-17] MEDS: METOCLOPRAMIDE HCL 10MG/2ML VIAL IV SCH ×4 (00:55→19:00)
[2022-04-17] MEDS: BLOOD SUGAR DIAGNOSTIC STRIP TEST SCH ×4 (00:56→18:00)
[2022-04-17] MEDS: IPRATROPIUM/ALBUTEROL 0.5-3(2.5)MG/3ML NEB HHN SCH (01:03)
[2022-04-17 05:39] LABS: HEMATOCRIT. 28.5 % (42.0-52.0); HEMOGLOBIN. 9.2 g/dL (14.0-18.0); MEAN CORPUSCULAR HEMOGLOBIN 30.7 pg (28.0-32.0); MEAN PLATELET VOLUME 8.8 fl (7.4-10.4); PLATELET 91 x1000/uL (130-400); RED CELL DISTRIBUTION WIDTH 17.1 % (11.6-14.6)
[2022-04-17 06:27] LABS: PHOSPHORUS 3.7 mg/dL (2.5-4.9)
[2022-04-17] MEDS: PANTOPRAZOLE 40MG DR TABLET PO SCH (06:49)
[2022-04-17] MEDS: CALCIUM ACETATE 667MG CAPSULE PO SCH ×4 (06:49→18:59)
[2022-04-17 09:41] LABS: NUCLEATED RED BLOOD CELLS 2 /100 WBC
[2022-04-17 09:42] LABS: PLATELET ESTIMATE DECREASED
[2022-04-17] MEDS: LEVOTHYROXINE SODIUM 100MCG TABLET PO SCH (09:53)
[2022-04-17] MEDS: DOXYCYCLINE HYCLATE 100MG CAPSULE PO SCH ×2 (09:53→19:00)
[2022-04-17] MEDS: FOLIC ACID/VITAMIN B COMP W-C TABLET PO SCH (09:53)
[2022-04-17] MEDS: FLUDROCORTISONE ACETATE 0.1MG TABLET PO SCH (09:53)
[2022-04-17] MEDS: MIDODRINE HCL 5MG TABLET PO SCH ×4 (09:54→18:59)
[2022-04-17] MEDS: CEFEPIME 1,000 MG in DEXTROSE 5% WATER 50 ML IV SCH (19:00)
[2022-04-17] MEDS: NOREPINEPHRINE 32 MG in DEXT 5% WATER 218 ML IV PRN (20:00)
[2022-04-17] MEDS: ATORVASTATIN CALCIUM 40MG TABLET PO SCH (23:09)
[2022-04-18] VITALS (100 sets, daily range): BP systolic 33–176; BP diastolic 13–99
[2022-04-18] MEDS: METOCLOPRAMIDE HCL 10MG/2ML VIAL IV SCH ×4 (00:27→18:33)
[2022-04-18 05:34] LABS: HEMATOCRIT. 28.5 % (42.0-52.0); HEMOGLOBIN. 9.3 g/dL (14.0-18.0); MEAN CORPUSCULAR HEMOGLOBIN 31.2 pg (28.0-32.0); MEAN CORPUSCULAR VOLUME 95.9 fL (80.0-94.0); MEAN PLATELET VOLUME 9.5 fl (7.4-10.4); PLATELET 72 x1000/uL (130-400); RED BLOOD CELL COUNT 2.97 mill/uL (4.7-6.1); RED CELL DISTRIBUTION WIDTH 17.3 % (11.6-14.6)
[2022-04-18] MEDS: BLOOD SUGAR DIAGNOSTIC STRIP TEST SCH ×4 (06:00→18:27)
[2022-04-18 07:03] LABS: T4 FREE 1.46 ng/dL (0.76-1.46)
[2022-04-18] MEDS: LEVOTHYROXINE SODIUM 100MCG TABLET PO SCH (07:05)
[2022-04-18] MEDS: PANTOPRAZOLE 40MG DR TABLET PO SCH (07:05)
[2022-04-18] MEDS: CALCIUM ACETATE 667MG CAPSULE PO SCH ×3 (07:05→18:33)
[2022-04-18] MEDS: NOREPINEPHRINE 32 MG in DEXT 5% WATER 218 ML IV PRN (07:26)
[2022-04-18] MEDS: FOLIC ACID/VITAMIN B COMP W-C TABLET PO SCH (09:57)
[2022-04-18] MEDS: DOXYCYCLINE HYCLATE 100MG CAPSULE PO SCH ×2 (09:57→18:33)
[2022-04-18] MEDS: MIDODRINE HCL 5MG TABLET PO SCH ×3 (09:57→18:33)
[2022-04-18 14:34] LABS: PLATELET ESTIMATE DECREASED
[2022-04-18] MEDS: CEFEPIME 1,000 MG in DEXTROSE 5% WATER 50 ML IV SCH (18:34)
[2022-04-18] MEDS: ATORVASTATIN CALCIUM 40MG TABLET PO SCH (20:35)
[2022-04-18 21:37] LABS: BG BASE EXCESS -3.5 mmol/L (-2.0-2.0); BG CARBOXYHEMOGLOBIN 0.9 % (0.5-1.5); BG DEOXYHEMOGLOBIN 6.8 % (0.0-5.0); BG FRACTION INSPIRED OXYGEN 36; BG HCO3 ACT 21.7 mmol/L (22.0-26.0); BG METHEMOGLOBIN 0.4 % (0.0-1.5); BG OXYGEN SATURATION 93.1 % (92.0-98.5); BG OXYHEMOGLOBIN 91.9 % (94.0-97.0); BG PCO2 39.6 mmHg (35.0-45.0); BG PH 7.356 (7.350-7.450); BG PO2 71.5 mmHg (75.0-100.0); BG SAMPLE SITE RIGHT RADIAL; BG TOTAL HEMOGLOBIN 10.4 g/dL (12.0-18.0); BG VENT MODE NASAL CANNULA
[2022-04-19] VITALS (104 sets, daily range): BP systolic 42–150; BP diastolic 13–117
[2022-04-19] MEDS: BLOOD SUGAR DIAGNOSTIC STRIP TEST SCH ×5 (00:56→23:02)
[2022-04-19] MEDS: METOCLOPRAMIDE HCL 10MG/2ML VIAL IV SCH ×4 (00:56→17:36)
[2022-04-19 05:34] LABS: HEMATOCRIT. 26.8 % (42.0-52.0); HEMOGLOBIN. 8.8 g/dL (14.0-18.0); MEAN CORPUSCULAR HEMOGLOBIN 31.2 pg (28.0-32.0); MEAN CORPUSCULAR VOLUME 95.1 fL (80.0-94.0); MEAN PLATELET VOLUME 8.9 fl (7.4-10.4); PLATELET 91 x1000/uL (130-400); RED BLOOD CELL COUNT 2.82 mill/uL (4.7-6.1); RED CELL DISTRIBUTION WIDTH 17.6 % (11.6-14.6)
[2022-04-19 05:56] LABS: PHOSPHORUS 3.9 mg/dL (2.5-4.9)
[2022-04-19] MEDS: PANTOPRAZOLE 40MG DR TABLET PO SCH (06:11)
[2022-04-19] MEDS: LEVOTHYROXINE SODIUM 100MCG TABLET PO SCH (06:11)
[2022-04-19] MEDS: CALCIUM ACETATE 667MG CAPSULE PO SCH ×3 (06:11→17:36)
[2022-04-19] MEDS: MIDODRINE HCL 5MG TABLET PO SCH ×3 (08:50→17:36)
[2022-04-19] MEDS: FOLIC ACID/VITAMIN B COMP W-C TABLET PO SCH (08:50)
[2022-04-19] MEDS: DOXYCYCLINE HYCLATE 100MG CAPSULE PO SCH ×2 (08:50→17:36)
[2022-04-19] MEDS: FLUDROCORTISONE ACETATE 0.1MG TABLET PO SCH (08:51)
[2022-04-19] MEDS: NOREPINEPHRINE 32 MG in DEXT 5% WATER 218 ML IV PRN (12:00)
[2022-04-19 13:46] LABS: NUCLEATED RED BLOOD CELLS 1 /100 WBC; PLATELET ESTIMATE DECREASED
[2022-04-19] MEDS: CEFEPIME 1,000 MG in DEXTROSE 5% WATER 50 ML IV SCH (17:37)
[2022-04-19] MEDS: ATORVASTATIN CALCIUM 40MG TABLET PO SCH (21:50)
[2022-04-19] MEDS: RIFAXIMIN 550 MG TABLET PO SCH (21:50)
[2022-04-20] VITALS (100 sets, daily range): BP systolic 37–135; BP diastolic 12–108
[2022-04-20] MEDS: METOCLOPRAMIDE HCL 10MG/2ML VIAL IV SCH ×4 (00:36→18:00)
[2022-04-20] MEDS: PHENYLEPHRINE 100 MG in DEXT 5% WATER 240 ML IV PRN ×4 (00:37→23:12)
[2022-04-20 05:34] LABS: HEMATOCRIT. 28.6 % (42.0-52.0); MEAN CORPUSCULAR HEMOGLOBIN 30.6 pg (28.0-32.0); MEAN CORPUSCULAR VOLUME 97.7 fL (80.0-94.0); MEAN PLATELET VOLUME 8.5 fl (7.4-10.4); PLATELET 86 x1000/uL (130-400); RED BLOOD CELL COUNT 2.93 mill/uL (4.7-6.1); RED CELL DISTRIBUTION WIDTH 19.1 % (11.6-14.6)
[2022-04-20] MEDS: LEVOTHYROXINE SODIUM 100MCG TABLET PO SCH (06:32)
[2022-04-20] MEDS: PANTOPRAZOLE 40MG DR TABLET PO SCH (06:33)
[2022-04-20] MEDS: BLOOD SUGAR DIAGNOSTIC STRIP TEST SCH ×3 (06:48→18:00)
[2022-04-20] MEDS: CALCIUM ACETATE 667MG CAPSULE PO SCH ×3 (07:48→16:44)
[2022-04-20] MEDS: MIDODRINE HCL 5MG TABLET PO SCH ×3 (08:54→16:44)
[2022-04-20] MEDS: FOLIC ACID/VITAMIN B COMP W-C TABLET PO SCH (09:18)
[2022-04-20] MEDS: AMIODARONE HCL 200 MG TABLET PO SCH (09:18)
[2022-04-20] MEDS: DOXYCYCLINE HYCLATE 100MG CAPSULE PO SCH ×2 (09:18→16:44)
[2022-04-20] MEDS: RIFAXIMIN 550 MG TABLET PO SCH ×2 (09:19→21:37)
[2022-04-20] MEDS: FLUDROCORTISONE ACETATE 0.1MG TABLET PO SCH (09:19)
[2022-04-20 13:36] LABS: PLATELET ESTIMATE DECREASED
[2022-04-20 15:13] LABS: BG BASE EXCESS -0.3 mmol/L (-2.0-2.0); BG CARBOXYHEMOGLOBIN 0.4 % (0.5-1.5); BG DEOXYHEMOGLOBIN 2.1 % (0.0-5.0); BG FRACTION INSPIRED OXYGEN 40; BG HCO3 ACT 25.5 mmol/L (22.0-26.0); BG METHEMOGLOBIN 0.3 % (0.0-1.5); BG OXYGEN SATURATION 97.9 % (92.0-98.5); BG OXYHEMOGLOBIN 97.2 % (94.0-97.0); BG PCO2 47.3 mmHg (35.0-45.0); BG PH 7.349 (7.350-7.450); BG PO2 129.3 mmHg (75.0-100.0); BG SAMPLE SITE RIGHT RADIAL; BG TOTAL HEMOGLOBIN 9.2 g/dL (12.0-18.0); BG VENT MODE MASK - SIMPLE
[2022-04-20] MEDS: CEFEPIME 1,000 MG in DEXTROSE 5% WATER 50 ML IV SCH (16:44)
[2022-04-20] MEDS: ATORVASTATIN CALCIUM 40MG TABLET PO SCH (21:36)
[2022-04-21] VITALS (96 sets, daily range): BP systolic 51–136; BP diastolic 15–89
[2022-04-21] MEDS: METOCLOPRAMIDE HCL 10MG/2ML VIAL IV SCH ×4 (00:17→17:07)
[2022-04-21] MEDS: PHENYLEPHRINE 100 MG in DEXT 5% WATER 240 ML IV PRN ×3 (04:22→20:40)
[2022-04-21 05:37] LABS: BASOPHILS % 0.5 % (0.0-2.0); EOSINOPHILS % 5.1 % (0.0-5.0); HEMATOCRIT. 27.1 % (42.0-52.0); HEMOGLOBIN. 8.7 g/dL (14.0-18.0); LYMPHOCYTES % 4.9 % (20.0-50.0); MEAN CORPUSCULAR HEMOGLOBIN 30.8 pg (28.0-32.0); MEAN CORPUSCULAR VOLUME 95.5 fL (80.0-94.0); MEAN PLATELET VOLUME 8.7 fl (7.4-10.4); MONOCYTES % 16.4 % (2.0-8.0); NEUTROPHILS % 73.1 % (40.0-76.0); PLATELET 67 x1000/uL (130-400); RED BLOOD CELL COUNT 2.84 mill/uL (4.7-6.1); RED CELL DISTRIBUTION WIDTH 19.1 % (11.6-14.6)
[2022-04-21] MEDS: NOREPINEPHRINE 32 MG in DEXT 5% WATER 218 ML IV PRN ×2 (05:56→12:36)
[2022-04-21 05:57] LABS: PHOSPHORUS 3.9 mg/dL (2.5-4.9)
[2022-04-21] MEDS: BLOOD SUGAR DIAGNOSTIC STRIP TEST SCH ×4 (06:00→17:01)
[2022-04-21] MEDS: PANTOPRAZOLE 40MG DR TABLET PO SCH (06:30)
[2022-04-21] MEDS: LEVOTHYROXINE SODIUM 100MCG TABLET PO SCH (06:31)
[2022-04-21] MEDS: CALCIUM ACETATE 667MG CAPSULE PO SCH ×3 (06:31→17:07)
[2022-04-21] MEDS: RIFAXIMIN 550 MG TABLET PO SCH ×2 (08:57→21:42)
[2022-04-21] MEDS: MIDODRINE HCL 5MG TABLET PO SCH ×3 (08:57→17:07)
[2022-04-21] MEDS: FLUDROCORTISONE ACETATE 0.1MG TABLET PO SCH (08:57)
[2022-04-21] MEDS: DOXYCYCLINE HYCLATE 100MG CAPSULE PO SCH (08:57)
[2022-04-21] MEDS: FOLIC ACID/VITAMIN B COMP W-C TABLET PO SCH (08:57)
[2022-04-21] MEDS: AMIODARONE HCL 200 MG TABLET PO SCH (08:58)
[2022-04-21] MEDS ORDERED: POTASSIUM CHLORIDE 20MEQ TABLET SR PO NR (09:30)
[2022-04-21] MEDS: CEFEPIME 1,000 MG in DEXTROSE 5% WATER 50 ML IV SCH (17:09)
[2022-04-21] MEDS: DOXYCYCLINE 100 MG in DEXT 5% WATER 100 ML IV SCH (17:52)
[2022-04-21] MEDS: ATORVASTATIN CALCIUM 40MG TABLET PO SCH (21:42)
[2022-04-22] VITALS (86 sets, daily range): BP systolic 68–125; BP diastolic 33–63
[2022-04-22] MEDS: METOCLOPRAMIDE HCL 10MG/2ML VIAL IV SCH ×5 (00:02→23:51)
[2022-04-22] MEDS: NOREPINEPHRINE 32 MG in DEXT 5% WATER 218 ML IV PRN (02:42)
[2022-04-22] MEDS: PHENYLEPHRINE 100 MG in DEXT 5% WATER 240 ML IV PRN ×3 (03:32→19:08)
[2022-04-22 05:15] LABS: HEMATOCRIT. 27.1 % (42.0-52.0); MEAN CORPUSCULAR HEMOGLOBIN 31.3 pg (28.0-32.0); MEAN CORPUSCULAR VOLUME 94.4 fL (80.0-94.0); MEAN PLATELET VOLUME 8.9 fl (7.4-10.4); PLATELET 78 x1000/uL (130-400); RED BLOOD CELL COUNT 2.87 mill/uL (4.7-6.1)
[2022-04-22] MEDS: DOXYCYCLINE 100 MG in DEXT 5% WATER 100 ML IV SCH ×2 (05:28→17:40)
[2022-04-22] MEDS: PANTOPRAZOLE 40MG DR TABLET PO SCH ×2 (05:30→06:50)
[2022-04-22] MEDS: LEVOTHYROXINE SODIUM 112MCG TABLET PO SCH ×2 (05:32→06:30)
[2022-04-22 05:46] LABS: PHOSPHORUS 3.1 mg/dL (2.5-4.9)
[2022-04-22] MEDS: BLOOD SUGAR DIAGNOSTIC STRIP TEST SCH ×5 (06:00→23:51)
[2022-04-22] MEDS ORDERED: FENTANYL CITRATE/PF 2,500 MCG in SODIUM CHLORIDE 0.9% 200 ML IV PRN (06:45)
[2022-04-22] MEDS ORDERED: VASOPRESSIN 20 UNIT in SODIUM CHLORIDE 0.9% 99 ML IV PRN (06:45)
[2022-04-22] MEDS: CALCIUM ACETATE 667MG CAPSULE PO SCH ×3 (06:51→17:41)
[2022-04-22 07:50] LABS: NUCLEATED RED BLOOD CELLS 3 /100 WBC; PLATELET ESTIMATE DECREASED
[2022-04-22] MEDS ORDERED: MIDAZOLAM HCL 100 MG in SODIUM CHLORIDE 0.9% 80 ML IV PRN (08:00)
[2022-04-22 08:27] LABS: BG BASE EXCESS -1.7 mmol/L (-2.0-2.0); BG CARBOXYHEMOGLOBIN 0.8 % (0.5-1.5); BG DEOXYHEMOGLOBIN 0.4 % (0.0-5.0); BG FRACTION INSPIRED OXYGEN 100; BG METHEMOGLOBIN 0.5 % (0.0-1.5); BG OXYGEN SATURATION 99.6 % (92.0-98.5); BG OXYHEMOGLOBIN 98.3 % (94.0-97.0); BG PCO2 38.5 mmHg (35.0-45.0); BG PH 7.394 (7.350-7.450); BG PO2 245.1 mmHg (75.0-100.0); BG SAMPLE SITE RIGHT BRACHIAL; BG TOTAL HEMOGLOBIN 10.6 g/dL (12.0-18.0); BG VENT MODE VENT - AC
[2022-04-22] MEDS: MIDODRINE HCL 5MG TABLET PO SCH ×3 (09:42→17:41)
[2022-04-22] MEDS: RIFAXIMIN 550 MG TABLET PO SCH ×2 (09:42→21:52)
[2022-04-22] MEDS: FOLIC ACID/VITAMIN B COMP W-C TABLET PO SCH (09:43)
[2022-04-22] MEDS: AMIODARONE HCL 200 MG TABLET PO SCH (09:43)
[2022-04-22] MEDS: FLUDROCORTISONE ACETATE 0.1MG TABLET PO SCH (09:44)
[2022-04-22] MEDS ORDERED: SUCCINYLCHOLINE CHLORIDE 200MG/10ML IV ONE (11:33)
[2022-04-22] MEDS ORDERED: ETOMIDATE 2MG/ML 10ML VIAL IV ONE (11:33)
[2022-04-22] MEDS: CEFEPIME 1,000 MG in DEXTROSE 5% WATER 50 ML IV SCH (17:41)
[2022-04-22] MEDS: ATORVASTATIN CALCIUM 40MG TABLET PO SCH (21:51)
[2022-04-22] MEDS: EPOETIN ALFA-EPBX 4,000 UNIT/ML VIAL SUBCUT SCH (23:41)
[2022-04-23] VITALS (98 sets, daily range): BP systolic 67–118; BP diastolic 38–67
[2022-04-23] MEDS: PHENYLEPHRINE 100 MG in DEXT 5% WATER 240 ML IV PRN ×2 (03:09→10:18)
[2022-04-23] MEDS: DOXYCYCLINE 100 MG in DEXT 5% WATER 100 ML IV SCH ×2 (03:51→17:13)
[2022-04-23 05:07] LABS: HEMATOCRIT. 26.6 % (42.0-52.0); HEMOGLOBIN. 8.8 g/dL (14.0-18.0); MEAN CORPUSCULAR HEMOGLOBIN 31.1 pg (28.0-32.0); MEAN CORPUSCULAR VOLUME 93.8 fL (80.0-94.0); MEAN PLATELET VOLUME 9.1 fl (7.4-10.4); PLATELET 74 x1000/uL (130-400); RED BLOOD CELL COUNT 2.83 mill/uL (4.7-6.1); RED CELL DISTRIBUTION WIDTH 19.6 % (11.6-14.6)
[2022-04-23 05:33] LABS: PHOSPHORUS 2.8 mg/dL (2.5-4.9)
[2022-04-23] MEDS: BLOOD SUGAR DIAGNOSTIC STRIP TEST SCH ×4 (05:50→23:04)
[2022-04-23] MEDS: METOCLOPRAMIDE HCL 10MG/2ML VIAL IV SCH ×4 (06:02→23:16)
[2022-04-23] MEDS: CALCIUM ACETATE 667MG CAPSULE PO SCH ×3 (06:02→17:14)
[2022-04-23] MEDS: LEVOTHYROXINE SODIUM 112MCG TABLET PO SCH (06:02)
[2022-04-23] MEDS: PANTOPRAZOLE 40MG DR TABLET PO SCH (06:02)
[2022-04-23 09:46] LABS: PLATELET ESTIMATE DECREASED
[2022-04-23] MEDS: FOLIC ACID/VITAMIN B COMP W-C TABLET PO SCH (09:54)
[2022-04-23] MEDS: RIFAXIMIN 550 MG TABLET PO SCH ×2 (09:54→22:08)
[2022-04-23] MEDS: MIDODRINE HCL 5MG TABLET PO SCH ×3 (09:55→17:13)
[2022-04-23] MEDS: FLUDROCORTISONE ACETATE 0.1MG TABLET PO SCH (09:56)
[2022-04-23 12:16] LABS: BG BASE EXCESS 2.2 mmol/L (-2.0-2.0); BG CARBOXYHEMOGLOBIN 0.9 % (0.5-1.5); BG DEOXYHEMOGLOBIN 1.6 % (0.0-5.0); BG FRACTION INSPIRED OXYGEN 40; BG HCO3 ACT 25.9 mmol/L (22.0-26.0); BG METHEMOGLOBIN 0.2 % (0.0-1.5); BG OXYGEN SATURATION 98.4 % (92.0-98.5); BG OXYHEMOGLOBIN 97.3 % (94.0-97.0); BG PCO2 36.7 mmHg (35.0-45.0); BG PH 7.466 (7.350-7.450); BG PO2 115.3 mmHg (75.0-100.0); BG SAMPLE SITE RIGHT RADIAL; BG TOTAL HEMOGLOBIN 10.7 g/dL (12.0-18.0); BG VENT MODE VENT - AC
[2022-04-23] MEDS: CEFEPIME 1,000 MG in DEXTROSE 5% WATER 50 ML IV SCH (17:14)
[2022-04-23] MEDS: ATORVASTATIN CALCIUM 40MG TABLET PO SCH (22:08)
[2022-04-24] VITALS (82 sets, daily range): BP systolic 78–117; BP diastolic 25–72
[2022-04-24] MEDS: DOXYCYCLINE 100 MG in DEXT 5% WATER 100 ML IV SCH ×2 (05:13→17:02)
[2022-04-24] MEDS: BLOOD SUGAR DIAGNOSTIC STRIP TEST SCH ×4 (05:13→23:43)
[2022-04-24] MEDS: METOCLOPRAMIDE HCL 10MG/2ML VIAL IV SCH ×4 (05:13→23:42)
[2022-04-24 05:31] LABS: CHLORIDE 102 mEq/L (98-107)
[2022-04-24 05:33] LABS: HEMATOCRIT. 27.8 % (42.0-52.0); HEMOGLOBIN. 9.2 g/dL (14.0-18.0); MEAN CORPUSCULAR HEMOGLOBIN 30.9 pg (28.0-32.0); MEAN CORPUSCULAR VOLUME 93.2 fL (80.0-94.0); MEAN PLATELET VOLUME 9.3 fl (7.4-10.4); PLATELET 57 x1000/uL (130-400); RED BLOOD CELL COUNT 2.99 mill/uL (4.7-6.1); RED CELL DISTRIBUTION WIDTH 20.1 % (11.6-14.6)
[2022-04-24] MEDS: PANTOPRAZOLE 40MG DR TABLET PO SCH (05:59)
[2022-04-24] MEDS: LEVOTHYROXINE SODIUM 112MCG TABLET PO SCH (05:59)
[2022-04-24] MEDS: CALCIUM ACETATE 667MG CAPSULE PO SCH ×3 (06:00→17:07)
[2022-04-24 07:47] LABS: PLATELET ESTIMATE DECREASED
[2022-04-24] MEDS: RIFAXIMIN 550 MG TABLET PO SCH ×2 (09:00→21:40)
[2022-04-24 09:05] LABS: BG BASE EXCESS 1.1 mmol/L (-2.0-2.0); BG CARBOXYHEMOGLOBIN 0.9 % (0.5-1.5); BG DEOXYHEMOGLOBIN 2.6 % (0.0-5.0); BG FRACTION INSPIRED OXYGEN 35; BG HCO3 ACT 24.8 mmol/L (22.0-26.0); BG METHEMOGLOBIN 0.3 % (0.0-1.5); BG OXYGEN SATURATION 97.4 % (92.0-98.5); BG OXYHEMOGLOBIN 96.2 % (94.0-97.0); BG PCO2 36.1 mmHg (35.0-45.0); BG PH 7.455 (7.350-7.450); BG PO2 96.6 mmHg (75.0-100.0); BG SAMPLE SITE RIGHT RADIAL; BG VENT MODE VENT - AC
[2022-04-24] MEDS: FLUDROCORTISONE ACETATE 0.1MG TABLET PO SCH (09:58)
[2022-04-24] MEDS: MIDODRINE HCL 5MG TABLET PO SCH ×3 (10:00→17:08)
[2022-04-24] MEDS: FOLIC ACID/VITAMIN B COMP W-C TABLET PO SCH (10:00)
[2022-04-24 16:41] LABS: INR 1.7; PROTHROMBIN TIME 17.2 sec (9.6-11.0)
[2022-04-24] MEDS: CEFEPIME 1,000 MG in DEXTROSE 5% WATER 50 ML IV SCH (17:02)
[2022-04-24] MEDS: ATORVASTATIN CALCIUM 40MG TABLET PO SCH (21:40)
[2022-04-24] MEDS: MEROPENEM 1,000 MG in SODIUM CHLORIDE 0.9% 100 ML IV SCH (21:40)
[2022-04-25] VITALS (91 sets, daily range): BP systolic 65–152; BP diastolic 19–87
[2022-04-25] MEDS: NOREPINEPHRINE 32 MG in DEXT 5% WATER 218 ML IV PRN ×2 (00:32→21:48)
[2022-04-25 05:54] LABS: HEMATOCRIT. 30.3 % (42.0-52.0); MEAN CORPUSCULAR VOLUME 93.6 fL (80.0-94.0); MEAN PLATELET VOLUME 8.7 fl (7.4-10.4); PLATELET 67 x1000/uL (130-400); RED BLOOD CELL COUNT 3.24 mill/uL (4.7-6.1); RED CELL DISTRIBUTION WIDTH 20.5 % (11.6-14.6)
[2022-04-25] MEDS: CALCIUM ACETATE 667MG CAPSULE PO SCH ×3 (05:55→17:12)
[2022-04-25] MEDS: BLOOD SUGAR DIAGNOSTIC STRIP TEST SCH ×3 (05:55→17:11)
[2022-04-25] MEDS: LEVOTHYROXINE SODIUM 112MCG TABLET PO SCH (05:55)
[2022-04-25] MEDS: PANTOPRAZOLE 40MG DR TABLET PO SCH (05:55)
[2022-04-25] MEDS: DOXYCYCLINE 100 MG in DEXT 5% WATER 100 ML IV SCH ×2 (05:55→16:45)
[2022-04-25] MEDS: METOCLOPRAMIDE HCL 10MG/2ML VIAL IV SCH ×3 (05:55→17:12)
[2022-04-25 06:05] LABS: CHLORIDE 100 mEq/L (98-107)
[2022-04-25 07:05] LABS: PHOSPHORUS 3.1 mg/dL (2.5-4.9)
[2022-04-25 08:54] LABS: BG BASE EXCESS 0.4 mmol/L (-2.0-2.0); BG DEOXYHEMOGLOBIN 3.1 % (0.0-5.0); BG FRACTION INSPIRED OXYGEN 30; BG HCO3 ACT 24.2 mmol/L (22.0-26.0); BG METHEMOGLOBIN 0.2 % (0.0-1.5); BG OXYGEN SATURATION 96.9 % (92.0-98.5); BG OXYHEMOGLOBIN 95.7 % (94.0-97.0); BG PCO2 35.9 mmHg (35.0-45.0); BG PH 7.446 (7.350-7.450); BG PO2 91.3 mmHg (75.0-100.0); BG SAMPLE SITE RIGHT RADIAL; BG TOTAL HEMOGLOBIN 10.5 g/dL (12.0-18.0); BG TOTAL RESPIRATORY RATE 16 b/min; BG VENT MODE VENT - AC
[2022-04-25] MEDS: FOLIC ACID/VITAMIN B COMP W-C TABLET PO SCH (09:18)
[2022-04-25] MEDS: MIDODRINE HCL 5MG TABLET PO SCH ×3 (09:19→17:13)
[2022-04-25] MEDS: FLUDROCORTISONE ACETATE 0.1MG TABLET PO SCH (09:19)
[2022-04-25] MEDS: PHENYLEPHRINE 100 MG in DEXT 5% WATER 240 ML IV PRN (10:22)
[2022-04-25] MEDS ORDERED: VASOPRESSIN 20 UNIT in SODIUM CHLORIDE 0.9% 99 ML IV PRN (11:30)
[2022-04-25] MEDS: AMIODARONE HCL 200 MG TABLET NG SCH (12:04)
[2022-04-25 13:42] LABS: PLATELET ESTIMATE DECREASED
[2022-04-25] MEDS ORDERED: PHYTONADIONE 10MG/ML AMP SUBCUT NR (14:45)
[2022-04-25] MEDS: HYDROCORTISONE 10MG TABLET PO SCH ×2 (14:53→21:47)
[2022-04-25] MEDS: MEROPENEM 1,000 MG in SODIUM CHLORIDE 0.9% 100 ML IV SCH (20:00)
[2022-04-25] MEDS: ATORVASTATIN CALCIUM 40MG TABLET PO SCH (21:45)
[2022-04-26] VITALS (97 sets, daily range): BP systolic 81–208; BP diastolic 20–114
[2022-04-26] MEDS: METOCLOPRAMIDE HCL 10MG/2ML VIAL IV SCH ×5 (00:36→23:30)
[2022-04-26] MEDS: DOXYCYCLINE 100 MG in DEXT 5% WATER 100 ML IV SCH (04:35)
[2022-04-26 05:30] LABS: HEMATOCRIT. 31.8 % (42.0-52.0); HEMOGLOBIN. 10.3 g/dL (14.0-18.0); MEAN CORPUSCULAR HEMOGLOBIN 30.3 pg (28.0-32.0); MEAN CORPUSCULAR VOLUME 93.3 fL (80.0-94.0); MEAN PLATELET VOLUME 8.9 fl (7.4-10.4); PLATELET 101 x1000/uL (130-400); RED CELL DISTRIBUTION WIDTH 19.9 % (11.6-14.6)
[2022-04-26 05:36] LABS: INR 1.3; PROTHROMBIN TIME 13.6 sec (9.6-11.0)
[2022-04-26 05:54] LABS: CHLORIDE 96 mEq/L (98-107)
[2022-04-26] MEDS: BLOOD SUGAR DIAGNOSTIC STRIP TEST SCH ×4 (06:00→18:00)
[2022-04-26] MEDS: HYDROCORTISONE 10MG TABLET PO SCH ×3 (06:30→21:25)
[2022-04-26] MEDS: LEVOTHYROXINE SODIUM 112MCG TABLET PO SCH (06:30)
[2022-04-26] MEDS: CALCIUM ACETATE 667MG CAPSULE PO SCH ×3 (06:30→17:45)
[2022-04-26] MEDS: PANTOPRAZOLE 40MG DR TABLET PO SCH (06:30)
[2022-04-26 08:38] LABS: PLATELET ESTIMATE SLIGHTLY DECREASED
[2022-04-26] MEDS ORDERED: LIDOCAINE HCL/EPINEPHRINE 1%-EPI 1:100,000 20 ML VIAL ONE (08:38)
[2022-04-26 08:48] LABS: BG BASE EXCESS -4.7 mmol/L (-2.0-2.0); BG CARBOXYHEMOGLOBIN 1.1 % (0.5-1.5); BG DEOXYHEMOGLOBIN 4.3 % (0.0-5.0); BG FRACTION INSPIRED OXYGEN 35; BG HCO3 ACT 19.2 mmol/L (22.0-26.0); BG METHEMOGLOBIN 0.2 % (0.0-1.5); BG OXYGEN SATURATION 95.6 % (92.0-98.5); BG OXYHEMOGLOBIN 94.4 % (94.0-97.0); BG PCO2 31.7 mmHg (35.0-45.0); BG PH 7.401 (7.350-7.450); BG PO2 82.6 mmHg (75.0-100.0); BG SAMPLE SITE RIGHT RADIAL; BG TOTAL HEMOGLOBIN 10.8 g/dL (12.0-18.0); BG VENT MODE VENT - AC
[2022-04-26] MEDS: MIDODRINE HCL 5MG TABLET PO SCH ×3 (09:09→18:21)
[2022-04-26] MEDS: FOLIC ACID/VITAMIN B COMP W-C TABLET PO SCH (09:09)
[2022-04-26] MEDS: AMIODARONE HCL 200 MG TABLET NG SCH (09:09)
[2022-04-26] MEDS: NOREPINEPHRINE 32 MG in DEXT 5% WATER 218 ML IV PRN (09:28)
[2022-04-26] MEDS ORDERED: MIDAZOLAM HCL 2 MG/2 ML VIAL IV NR (11:45)
[2022-04-26] MEDS ORDERED: FENTANYL CITRATE/PF 50MCG/ML 2ML VIAL ONE (14:42)
[2022-04-26] MEDS ORDERED: ROCURONIUM BROMIDE 10MG/ML VIAL 5ML IV ONE ×2 (14:42→15:28)
[2022-04-26] MEDS ORDERED: MIDAZOLAM HCL 2 MG/2 ML VIAL ONE (14:42)
[2022-04-26] MEDS: MEROPENEM-0.9% SODIUM CHLORIDE 50 ML IV SCH (21:24)
[2022-04-26] MEDS: ATORVASTATIN CALCIUM 40MG TABLET PO SCH (21:25)
[2022-04-27] VITALS (98 sets, daily range): BP systolic 49–136; BP diastolic 14–74
[2022-04-27] MEDS: METOCLOPRAMIDE HCL 10MG/2ML VIAL IV SCH ×4 (05:26→23:27)
[2022-04-27] MEDS: PANTOPRAZOLE 40MG DR TABLET PO SCH (05:26)
[2022-04-27] MEDS: HYDROCORTISONE 10MG TABLET PO SCH ×3 (05:26→21:01)
[2022-04-27] MEDS: CALCIUM ACETATE 667MG CAPSULE PO SCH ×3 (05:27→16:04)
[2022-04-27] MEDS: LEVOTHYROXINE SODIUM 112MCG TABLET PO SCH (05:27)
[2022-04-27 05:38] LABS: BASOPHILS % 0.1 % (0.0-2.0); EOSINOPHILS % 0.1 % (0.0-5.0); HEMATOCRIT. 27.6 % (42.0-52.0); HEMOGLOBIN. 9.1 g/dL (14.0-18.0); LYMPHOCYTES % 4.4 % (20.0-50.0); MEAN CORPUSCULAR HEMOGLOBIN 30.6 pg (28.0-32.0); MEAN CORPUSCULAR VOLUME 92.6 fL (80.0-94.0); MEAN PLATELET VOLUME 8.8 fl (7.4-10.4); NEUTROPHILS % 88.4 % (40.0-76.0); PLATELET 86 x1000/uL (130-400); RED BLOOD CELL COUNT 2.98 mill/uL (4.7-6.1); RED CELL DISTRIBUTION WIDTH 19.8 % (11.6-14.6)
[2022-04-27] MEDS: BLOOD SUGAR DIAGNOSTIC STRIP TEST SCH ×5 (06:00→23:24)
[2022-04-27 06:03] LABS: PHOSPHORUS 3.9 mg/dL (2.5-4.9)
[2022-04-27 08:16] LABS: BG CARBOXYHEMOGLOBIN 0.9 % (0.5-1.5); BG FRACTION INSPIRED OXYGEN 35; BG HCO3 ACT 21.3 mmol/L (22.0-26.0); BG METHEMOGLOBIN 0.2 % (0.0-1.5); BG OXYHEMOGLOBIN 96.9 % (94.0-97.0); BG PH 7.402 (7.350-7.450); BG PO2 116.4 mmHg (75.0-100.0); BG SAMPLE SITE ALINE; BG TOTAL HEMOGLOBIN 9.6 g/dL (12.0-18.0); BG VENT MODE VENT - AC
[2022-04-27] MEDS: AMIODARONE HCL 200 MG TABLET NG SCH (09:36)
[2022-04-27] MEDS: FOLIC ACID/VITAMIN B COMP W-C TABLET PO SCH (09:36)
[2022-04-27] MEDS: MIDODRINE HCL 5MG TABLET PO SCH ×3 (09:37→16:05)
[2022-04-27] MEDS ORDERED: LACTATED RINGERS 1,000 ML IV SCH (14:00)
[2022-04-27] MEDS ORDERED: ALBUMIN HUMAN 12.5G/250ML (5%) IV NR ×2 (14:00→16:00)
[2022-04-27] MEDS ORDERED: PROPOFOL 10MG/ML 100ML 100 ML IV PRN (16:00)
[2022-04-27] MEDS: MEROPENEM-0.9% SODIUM CHLORIDE 50 ML IV SCH (19:49)
[2022-04-27] MEDS: NOREPINEPHRINE 32 MG in DEXT 5% WATER 218 ML IV PRN (19:59)
[2022-04-27] MEDS: EPOETIN ALFA-EPBX 4,000 UNIT/ML VIAL SUBCUT SCH (21:01)
[2022-04-27] MEDS: ATORVASTATIN CALCIUM 40MG TABLET PO SCH (21:01)
[2022-04-28] VITALS (97 sets, daily range): BP systolic -10–137; BP diastolic -10–83
[2022-04-28 05:56] LABS: EOSINOPHILS % 0.1 % (0.0-5.0); HEMATOCRIT. 32.1 % (42.0-52.0); HEMOGLOBIN. 10.3 g/dL (14.0-18.0); LYMPHOCYTES % 3.5 % (20.0-50.0); MEAN CORPUSCULAR HEMOGLOBIN 30.5 pg (28.0-32.0); MEAN CORPUSCULAR VOLUME 94.6 fL (80.0-94.0); MEAN PLATELET VOLUME 8.6 fl (7.4-10.4); MONOCYTES % 8.5 % (2.0-8.0); NEUTROPHILS % 87.9 % (40.0-76.0); PLATELET 126 x1000/uL (130-400); RED BLOOD CELL COUNT 3.39 mill/uL (4.7-6.1); RED CELL DISTRIBUTION WIDTH 20.2 % (11.6-14.6)
[2022-04-28 06:06] LABS: PHOSPHORUS 5.3 mg/dL (2.5-4.9)
[2022-04-28] MEDS: METOCLOPRAMIDE HCL 10MG/2ML VIAL IV SCH ×4 (06:23→23:52)
[2022-04-28] MEDS: CALCIUM ACETATE 667MG CAPSULE PO SCH ×3 (06:23→17:47)
[2022-04-28] MEDS: PANTOPRAZOLE 40MG DR TABLET PO SCH (06:24)
[2022-04-28] MEDS: BLOOD SUGAR DIAGNOSTIC STRIP TEST SCH ×4 (06:24→23:50)
[2022-04-28] MEDS: LEVOTHYROXINE SODIUM 112MCG TABLET PO SCH (06:24)
[2022-04-28] MEDS: HYDROCORTISONE 10MG TABLET PO SCH ×3 (06:24→21:43)
[2022-04-28 07:36] LABS: VITAMIN B12 SERUM >2000 pg/mL pg/mL (211-911)
[2022-04-28] MEDS: FOLIC ACID/VITAMIN B COMP W-C TABLET PO SCH (08:43)
[2022-04-28] MEDS: AMIODARONE HCL 200 MG TABLET NG SCH (08:43)
[2022-04-28] MEDS: MIDODRINE HCL 5MG TABLET PO SCH ×3 (08:44→17:47)
[2022-04-28 08:46] LABS: BG BASE EXCESS -5.1 mmol/L (-2.0-2.0); BG CARBOXYHEMOGLOBIN 1.3 % (0.5-1.5); BG DEOXYHEMOGLOBIN 2.3 % (0.0-5.0); BG FRACTION INSPIRED OXYGEN 35; BG METHEMOGLOBIN 0.1 % (0.0-1.5); BG OXYGEN SATURATION 97.7 % (92.0-98.5); BG OXYHEMOGLOBIN 96.3 % (94.0-97.0); BG PCO2 37.3 mmHg (35.0-45.0); BG PH 7.347 (7.350-7.450); BG PO2 106.3 mmHg (75.0-100.0); BG SAMPLE SITE ALINE; BG TOTAL HEMOGLOBIN 11.4 g/dL (12.0-18.0); BG VENT MODE VENT - AC
[2022-04-28] MEDS: DEXT 5%/0.9% NACL 1,000 ML IV SCH ×2 (09:52→23:52)
[2022-04-28 10:07] LABS: FERRITIN 1763 ng/mL (22-322)
[2022-04-28 11:27] LABS: TOTAL IRON BINDING CAPACITY 173 ug/dL (250-450)
[2022-04-28] MEDS: INSULIN LISPRO 100 UNITS/ML SUBCUT SCH ×3 (13:23→20:58)
[2022-04-28] MEDS: MEROPENEM-0.9% SODIUM CHLORIDE 50 ML IV SCH (20:57)
[2022-04-28] MEDS: ATORVASTATIN CALCIUM 40MG TABLET PO SCH (20:57)
[2022-04-28 21:27] LABS: FOLIC ACID (FOLATE) SERUM > 20.00 ng/mL (>5.38)
[2022-04-29] VITALS (91 sets, daily range): BP systolic 82–129; BP diastolic 51–87
[2022-04-29] MEDS: BLOOD SUGAR DIAGNOSTIC STRIP TEST SCH ×4 (05:40→23:42)
[2022-04-29 05:42] LABS: HEMATOCRIT. 26.2 % (42.0-52.0); HEMOGLOBIN. 8.7 g/dL (14.0-18.0); MEAN CORPUSCULAR HEMOGLOBIN 31.2 pg (28.0-32.0); MEAN CORPUSCULAR VOLUME 93.6 fL (80.0-94.0); MEAN PLATELET VOLUME 8.4 fl (7.4-10.4); PLATELET 87 x1000/uL (130-400); RED CELL DISTRIBUTION WIDTH 19.6 % (11.6-14.6)
[2022-04-29 05:48] LABS: PHOSPHORUS 3.8 mg/dL (2.5-4.9)
[2022-04-29] MEDS: PANTOPRAZOLE 40MG DR TABLET PO SCH (05:58)
[2022-04-29] MEDS: HYDROCORTISONE 10MG TABLET PO SCH (05:58)
[2022-04-29] MEDS: METOCLOPRAMIDE HCL 10MG/2ML VIAL IV SCH (05:58)
[2022-04-29] MEDS: LEVOTHYROXINE SODIUM 112MCG TABLET PO SCH (05:58)
[2022-04-29] MEDS: CALCIUM ACETATE 667MG CAPSULE PO SCH ×3 (06:01→17:54)
[2022-04-29] MEDS: INSULIN LISPRO 100 UNITS/ML SUBCUT SCH ×4 (06:01→20:22)
[2022-04-29 08:33] LABS: BG BASE EXCESS 1.2 mmol/L (-2.0-2.0); BG CARBOXYHEMOGLOBIN 0.9 % (0.5-1.5); BG DEOXYHEMOGLOBIN 1.3 % (0.0-5.0); BG FRACTION INSPIRED OXYGEN 35; BG HCO3 ACT 25.5 mmol/L (22.0-26.0); BG METHEMOGLOBIN 0.3 % (0.0-1.5); BG OXYGEN SATURATION 98.7 % (92.0-98.5); BG OXYHEMOGLOBIN 97.5 % (94.0-97.0); BG PCO2 38.7 mmHg (35.0-45.0); BG PH 7.436 (7.350-7.450); BG PO2 142.2 mmHg (75.0-100.0); BG SAMPLE SITE RIGHT RADIAL; BG TOTAL HEMOGLOBIN 8.7 g/dL (12.0-18.0); BG VENT MODE VENT - AC
[2022-04-29] MEDS: AMIODARONE HCL 200 MG TABLET NG SCH (09:55)
[2022-04-29] MEDS: FOLIC ACID/VITAMIN B COMP W-C TABLET PO SCH (09:55)
[2022-04-29] MEDS: MIDODRINE HCL 5MG TABLET PO SCH ×3 (09:57→17:54)
[2022-04-29 10:16] LABS: PLATELET ESTIMATE DECREASED
[2022-04-29] MEDS ORDERED: METOCLOPRAMIDE HCL 10MG/2ML VIAL IV SCH (12:00)
[2022-04-29] MEDS ORDERED: HYDROCORTISONE 10MG TABLET PO SCH (17:00)
[2022-04-29] MEDS: MEROPENEM-0.9% SODIUM CHLORIDE 50 ML IV SCH (20:16)
[2022-04-29] MEDS: ATORVASTATIN CALCIUM 40MG TABLET PO SCH (20:16)
[2022-04-30] VITALS (12 sets, daily range): BP systolic 83–155; BP diastolic 43–84
[2022-04-30] MEDS ORDERED: MIDODRINE HCL 5MG TABLET PO NR (00:45)
== END 2022-04-30 01:40 | DRG 4 ==
LOC: ER 04:39 → MICUSO 07:02 → 7EST 15:45 → MICUSO 21:40
PROVIDERS: ADMIT Internal Medicine; ATTEND Internal Medicine
PROC: 0BH17EZ Insertion of Endotracheal Airway into Trachea, Via Natural or Artificial Opening (ICD-10-PCS; 2022-04-05)
PROC: 5A1945Z Respiratory Ventilation, 24-96 Consecutive Hours (ICD-10-PCS; 2022-04-05)
PROC: 5A1D70Z Performance of Urinary Filtration, Intermittent, Less than 6 Hours Per Day (ICD-10-PCS; 2022-04-06)
PROC: 5A1D70Z Performance of Urinary Filtration, Intermittent, Less than 6 Hours Per Day (ICD-10-PCS; 2022-04-08)
PROC: B54BZZA Ultrasonography of Right Lower Extremity Veins, Guidance (ICD-10-PCS; 2022-04-08)
PROC: 06HY33Z Insertion of Infusion Device into Lower Vein, Percutaneous Approach (ICD-10-PCS; 2022-04-08)
PROC: 05HY33Z Insertion of Infusion Device into Upper Vein, Percutaneous Approach (ICD-10-PCS; 2022-04-08)
PROC: B54MZZA Ultrasonography of Right Upper Extremity Veins, Guidance (ICD-10-PCS; 2022-04-08)
PROC: 5A1D70Z Performance of Urinary Filtration, Intermittent, Less than 6 Hours Per Day (ICD-10-PCS; 2022-04-10)
PROC: 5A1D70Z Performance of Urinary Filtration, Intermittent, Less than 6 Hours Per Day (ICD-10-PCS; 2022-04-12)
PROC: 5A1D70Z Performance of Urinary Filtration, Intermittent, Less than 6 Hours Per Day (ICD-10-PCS; 2022-04-14)
PROC: 5A1D70Z Performance of Urinary Filtration, Intermittent, Less than 6 Hours Per Day (ICD-10-PCS; 2022-04-16)
PROC: 5A1D70Z Performance of Urinary Filtration, Intermittent, Less than 6 Hours Per Day (ICD-10-PCS; 2022-04-19)
PROC: 5A1D70Z Performance of Urinary Filtration, Intermittent, Less than 6 Hours Per Day (ICD-10-PCS; 2022-04-21)
PROC: 5A1955Z Respiratory Ventilation, Greater than 96 Consecutive Hours (ICD-10-PCS; 2022-04-22)
PROC: 5A1D70Z Performance of Urinary Filtration, Intermittent, Less than 6 Hours Per Day (ICD-10-PCS; 2022-04-23)
PROC: 0B110F4 Bypass Trachea to Cutaneous with Tracheostomy Device, Open Approach (ICD-10-PCS; principal; 2022-04-26)
PROC: 5A1D70Z Performance of Urinary Filtration, Intermittent, Less than 6 Hours Per Day (ICD-10-PCS; 2022-04-26)
PROC: 03HY32Z Insertion of Monitoring Device into Upper Artery, Percutaneous Approach (ICD-10-PCS; 2022-04-26)
PROC: 4A133B1 Monitoring of Arterial Pressure, Peripheral, Percutaneous Approach (ICD-10-PCS; 2022-04-26)
PROC: 4A133J1 Monitoring of Arterial Pulse, Peripheral, Percutaneous Approach (ICD-10-PCS; 2022-04-26)
PROC: 5A1D70Z Performance of Urinary Filtration, Intermittent, Less than 6 Hours Per Day (ICD-10-PCS; 2022-04-28)
PROC: 5A1D70Z Performance of Urinary Filtration, Intermittent, Less than 6 Hours Per Day (ICD-10-PCS; 2022-04-30)
DX: A41.9 Sepsis, unspecified organism (principal); G93.41 Metabolic encephalopathy; N18.6 End stage renal disease; R65.21 Severe sepsis with septic shock; J96.01 Acute respiratory failure with hypoxia; J69.0 Pneumonitis due to inhalation of food and vomit; I21.4 Non-ST elevation (NSTEMI) myocardial infarction; I42.9 Cardiomyopathy, unspecified; E87.1 Hypo-osmolality and hyponatremia; E44.0 Moderate protein-calorie malnutrition; E87.20 Acidosis, unspecified; I13.2 Hypertensive heart and chronic kidney disease with heart failure and with stage 5 chronic kidney disease, or end stage renal disease; D61.818 Other pancytopenia; I47.20 Ventricular tachycardia, unspecified; K76.6 Portal hypertension; R18.8 Other ascites; K74.60 Unspecified cirrhosis of liver; G40.909 Epilepsy, unspecified, not intractable, without status epilepticus; I50.9 Heart failure, unspecified; E03.9 Hypothyroidism, unspecified; K21.9 Gastro-esophageal reflux disease without esophagitis; G62.9 Polyneuropathy, unspecified; Z20.822 Contact with and (suspected) exposure to COVID-19; E16.2 Hypoglycemia, unspecified; E78.00 Pure hypercholesterolemia, unspecified; E87.6 Hypokalemia; E88.09 Other disorders of plasma-protein metabolism, not elsewhere classified; I95.89 Other hypotension; I48.0 Paroxysmal atrial fibrillation; I44.0 Atrioventricular block, first degree; R13.12 Dysphagia, oropharyngeal phase; Z99.2 Dependence on renal dialysis; Z88.5 Allergy status to narcotic agent; Z79.899 Other long term (current) drug therapy; Z82.49 Family history of ischemic heart disease and other diseases of the circulatory system; Z68.27 Body mass index [BMI] 27.0-27.9, adult
CPT/HCPCS: 31500; 36415; 36556; 36573; 36600; 71045; 74018; 74176; 76604; 76700; 76705; 76937; 80048; 80053; 80202; 80320; 82140; 82375; 82533; 82607; 82728; 82746; 82805; 82962; 83036; 83525; 83540; 83550; 83605; 83735; 84100; 84145; 84206; 84439; 84443; 84478; 84484; 84681; 85025; 85044; 86705; 86709; 86803; 86850; 86900; 87070; 87340; 87426; 90935; 93005; 93970; 94002; 94003; 94640; 94660; 99291; A6261; C1725; C1752; C1760; C1893; J0330; J0692; J0885; J1630; J1815; J2060; J2185; J2250; J2370; J2405; J2704; J2765; J3010; J3370; J3430; J3490; J7030; J7040; J7042; J7050; J7060; J7131; P9041; G0480